=== PATIENT | male | born 1955 | race Caucasian/White ===

== ENCOUNTER 2019-07-25 07:58 | Outpatient (CLI) | payer MEDICARE, SELFPAY ==
--- NOTE | 2019-08-12 19:43 | SLEEP_ITS ---
Split Night Study DATE OF STUDY: 07/25/2019 ORDERING PHYSICIAN: Ashlie Goel MD. REASON FOR THE STUDY: Sleep apnea, unspecified. HISTORY: This patient is a 63-year-old male, 73 inches tall, weighing 305 pounds with a body mass index of 40.2. He has a history of frequently awakening at nighttime with coughing. He does have COPD. He does not indicate whether or not he snores. He frequently has trouble sleeping with a cold. He does not gasp for breath at night. He rarely has breathing problems observed by others at night. He does not fall asleep during the day, does not fall asleep involuntarily or while driving. He does not have daytime difficulties due to excessive sleepiness, is retired. He rarely has loss of muscle tone with strong emotion. He does not feel paralyzed on waking or falling asleep. He does not have vivid dreamlike scenes upon awakening or falling asleep. He is never afraid to go to sleep. He does not have nightmares. He occasionally remembers his dreams. He occasionally has racing thoughts, feelings of sadness, depression, anxiety, and muscular tension. He frequently notices parts of his body jerking, he frequently kicks at night and frequently has crawly, achy feelings in his legs. He frequently has leg pain at night. He denies morning jaw pain and denies grinding his teeth during sleep. He constantly is bothered by pain during the day as well as at night, wakes up feeling stiff in the morning with sore achy muscles and pain in the neck and spine joint. He has depression, headaches, financial problems, stomach problems and fatigue. He goes to bed between 9 and 10 p.m., taking 1-4 hours to fall asleep, sometimes waking 3 or more times during the night. Wake up time is variable. His sleep schedule is the same on the weekends. He does take naps. A short nap may be refreshing. He is usually drowsy in the morning for 3 hours or longer. He feels better in the afternoon and evening compared to the morning. MEDICAL DIAGNOSES: Arthritis with multiple surgeries including left hip, left knee, back surgery, pins and rods in his neck. He has had left shoulder surgery twice. He has diabetes mellitus, hypercholesterolemia, anxiety, depression, hypertension, myocardial infarction, history of a stroke, COPD, and acid reflux. MEDICATIONS: 1. Atorvastatin 40 mg a day. 2. Fluoxetine 40 mg a day. 3. Gabapentin 600 mg 1 tablet 3 times a day. 4. Levemir insulin as instructed. 5. Lisinopril 5 mg a day. 6. NovoLog insulin as instructed. 7. Oxycodone/acetaminophen 10/325 one t.i.d. p.r.n. pain. 8. Tizanidine 4 mg 1 t.i.d. as needed. 9. Trazodone 50 mg at bedtime. 10. Vascepa 1 g 4 times a day. 11. Warfarin 10 mg 1 daily. HABITS: Tobacco 1-1/2 packs per day. Caffeine, 4 cans of Pepsi per day. No alcohol. DESCRIPTION OF THE STUDY: On the Monroe Sleepiness Scale his score is 2. This was conducted as a split-night nocturnal polysomnogram in the lab using the [employer] multiple channel system including EOG, EEG, submental EMG, EKG, nasal and oral airflow using thermistors and nasal pressure sensors, chest, and abdominal belts, body position data and pulse oximetry. This study was scored using CMS guidelines. Duration was 262.4 minutes. Sleep time 168.5 minutes. Sleep efficiency was 64.2%. Sleep latency 19 minute. REM latency 195.5 minutes. He woke 6 times and spent 74.9 minutes awake after sleep onset. Sleep architecture showed 3% stage 1 sleep, 54.9% stage 2 sleep, 26.7% stage 3 sleep and 15.4% stage REM. There was no supine sleep during this portion. The apnea-hypopnea index was 10.7, all obstructive events. He had 1 obstructive apnea and 19 obstructive hypopneas in non-supine REM for an index of 46.2. He had 10 obstructive hypopne
== END 2019-07-25 07:59 | disposition home or self-care (01) ==
LOC: ANHCSM 07:59
PROVIDERS: PCP Family Medicine; Visit Provider Family Medicine
DX: G47.30 Sleep apnea, unspecified (principal)
CPT/HCPCS: 95811

== ENCOUNTER 2019-08-29 09:14 | Outpatient (CLI) | payer MEDICARE, SELFPAY | END 2019-08-29 09:15 | disposition home or self-care (01) | LOC: ANHAUDIO 09:16 | PROVIDERS: PCP Family Medicine; Visit Provider Family Medicine | DX: H91.93 Unspecified hearing loss, bilateral (principal) | CPT/HCPCS: 92557; 92567 ==

== ENCOUNTER 2019-09-12 18:56 | Emergency (ER) | payer MEDICARE, SELFPAY ==
--- NOTE | ~2019-09-12 | CT_ITS ---
EXAMINATION: CT abdomen pelvis w con EXAM DATE: 09/12/2019 20:28 INDICATION: Generalized abdominal pain. TECHNIQUE: Spiral CT of the abdomen and pelvis was performed following intravenous injection of 100 m L Omnipaque 350. Axial, coronal and sagittal images were reviewed. The dose-length product (DLP) fo r this examination was 1592.56 mGy-cm. The exposure was tailored according to patient size (auto mA exposure control), and iterative reconstruction (ASIR) was used as additional dose reduction techniqu e. Comparison is made to prior examination from 10/25/2018. FINDINGS: The liver, spleen, adrenal glands and pancreas are unremarkable. There are cholecystectomy clips. Portal and splenic veins are patent. Kidneys enhance symmetrically. There is no hydronephr osis. The prostate is unremarkable. Small left inguinal fat-containing hernia. The bladder is unre markable. There is no retroperitoneal or pelvic lymphadenopathy. There is mild scattered arteriosc lerotic disease. The appendix is normal. The stomach and small bowel are unremarkable. There is expected amount of c olonic stool. No free intraperitoneal gas. The heart is normal in size. There are no pericardial or pleural effusions. There is a left lower lobe nodule measuring 1.2 cm, likely granuloma. Some ve ry faint basilar mosaic attenuation as previously seen, could be mild air trapping given that this is likely chronic. With mild lobulations but no spiculation. This is unchanged compared to study one ye ar ago Lumbar fusion hardware and left hip replacement. There are no osteoblastic or osteolytic lesi ons identified. IMPRESSION: 1. No acute intra-abdominal findings. 2. Stable left lower lobe nodule probably granuloma. 3. Small left inguinal fat-containing hernia. 4. Basilar mosaic attenuation likely chronic air trapping. Reviewed, dictated and finalized at location A.
--- NOTE | ~2019-09-12 | XR_ITS ---
EXAMINATION: XR chest 1V portable EXAM DATE: 09/12/2019 21:37 INDICATION: Shortness of breath. TECHNIQUE: Portable AP frontal chest x-ray was obtained. Comparison is made to prior examination from 10/25/2018. FINDINGS: The cardiomediastinal silhouette is prominent but magnified on this AP technique. No conflu ent consolidation, pneumothorax or pleural effusion suspected. The bones and soft tissues are unrema rkable. IMPRESSION: No acute cardiopulmonary findings. Follow-up can be obtained if symptoms persist. Reviewed, dictated and finalized at location A. IMPRESSION: No acute cardiopulmonary findings. Follow-up can be obtained if sy mptoms persist.
[2019-09-12 19:02] VITALS: BP 146/87; PULSE 73; RESP 17; TEMP 37.1; O2SAT 93
[2019-09-12 19:03] LABS: Glucose Point of Care 361 (65-105)
--- NOTE | 2019-09-12 19:22 | ED.ABDPAIN ---
HPI - Abdominal Pain General Chief Complaint: Abdominal Pain Stated Complaint: several problems Time Seen by Provider: 09/12/19 19:11 History of Present Illness HPI narrative: Patient presents from home with abdominal pain for 8 years. Has intermittent spasms that started on his lower left go up to the upper left across to the upper right and down to the lower right. He says he aguilar over with this pain. He said is currently 10 out of 10, but worse if he bends over. He said years ago he had this pain and had a laparoscopy, and the surgeon remove scar tissue. He was told at that time that it would recur frequently. He takes chronic narcotics for chronic pain, and says that morphine does not work for him, and neither does fentanyl. MD elicited complaint: abdominal pain Pertinent past history: other (Adhesions) Onset (ago): year(s) Pain Consistency: intermittent Location: LUQ, RUQ, RLQ and LLQ Severity: severe Pain scale (0-10): 10 Quality: cramping Migration to: LUQ, RUQ, LLQ and RLQ Exacerbating factors: movement Relieving factors: nothing Context: confirms history of similar episodes Treatments prior to arrival: prescription analgesics Related Data Home Medications Medication Instructions Recorded Confirmed Levemir FlexTouch U-100 Insuln 15 unit SUBCUT DAILY 03/23/19 03/26/19 Vascepa 1 g PO QID 03/23/19 03/26/19 atorvastatin 40 mg PO DAILY 03/23/19 03/26/19 dicyclomine 20 mg PO TID 03/23/19 03/26/19 fluoxetine 40 mg PO DAILY 03/23/19 03/26/19 gabapentin 600 mg PO TID 03/23/19 03/26/19 lisinopril 5 mg PO DAILY 03/23/19 03/26/19 oxycodone-acetaminophen 1 tablet PO TID 03/23/19 03/26/19 tizanidine 4 mg PO TID 03/23/19 03/26/19 trazodone 50 mg PO DAILY 03/23/19 03/26/19 warfarin 10 mg PO DAILY 03/23/19 03/26/19 atorvastatin 40 mg tablet 40 mg PO DAILY 04/21/19 dicyclomine 20 mg tablet 20 mg PO TID 04/21/19 fluoxetine 40 mg capsule 40 mg PO DAILY 04/21/19 gabapentin 600 mg tablet 600 mg PO TID 04/21/19 icosapent ethyl 1 gram capsule 2 gm PO BID 04/21/19 insulin detemir U-100 100 unit/mL 100 unit SUB-Q ONCE 04/21/19 subcutaneous solution lisinopril 5 mg tablet 5 mg PO DAILY 04/21/19 oxycodone 5 mg capsule 5 mg PO Q8H PRN 04/21/19 tizanidine 4 mg capsule 4 mg PO TID PRN 04/21/19 trazodone 50 mg tablet 50 mg PO BID 04/21/19 warfarin 1 mg tablet 1 mg PO QMWF 04/21/19 Allergies Allergy/AdvReac Type Severity Reaction Status Date / Time furosemide Allergy Unknown Unknown Verified 07/01/19 08:37 Review of Systems Review of Systems: Narrative: CONSTITUTIONAL: Denies fever, chills, or sweats. EYES: Denies visual changes, redness, or discharge. ENT: Denies rhinorrhea, congestion, sore throat, or otalgia. CARDIOVASCULAR: Denies chest pain, palpitations, or edema. RESPIRATORY: Denies cough or dyspnea. GASTROINTESTINAL: Denies nausea, vomiting, or diarrhea. GENITOURINARY: Denies dysuria or hematuria. SKIN: Denies rash or itching. MUSCULOSKELETAL: Denies back pain, joint pain, or myalgia. NEUROLOGIC: Denies headache, numbness, or weakness. PSYCHIATRIC: Denies anxiety or depression. [facility] Past Medical History Medical History Abdominal pain, chronic, left lower quadrant Chronic generalized abdominal pain due to adhesions Chronic anticoagulation Chronic anticoagulation Chronic lower back pain With history of lumbar spines are COPD (chronic obstructive pulmonary disease) Coronary artery disease Cardiac catheterization 25 years ago without need for intervention per patient report CVA (cerebral vascular accident) 1998 with residual left-sided weakness and impulse control issues Depression Diabetes mellitus Last hemoglobin A1c 6.23 October 2018 Diverticulitis With patient reported history of suspected prior diverticulitis with perforation resulting in scar formation and subsequent adhesion lysis at the time cholecystectomy Emphysema with both acute and chronic bronchitis
[2019-09-12 19:33] LABS: Basophils Absolute Auto 0.1 K/mm3 (0.0-0.1); Basophils Percent Auto 0.7 % (0.2-1.2); Eosinophils Absolute Auto 0.3 K/mm3 (0-0.3); Eosinophils Percent Auto 3.1 % (0-4.4); Hematocrit 39.9 % (42.0-52.0); Hemoglobin 13.7 g/dL (14.0-18.0); Immature Granulocyte Absolute 0.03 K/mm3 (0.00-0.031); Immature Granulocyte Percent A 0.4 % (0-0.5); Lymphocytes Absolute Auto 2.47 K/mm3 (0.9-3.2); Lymphocytes Percent Auto 29.7 % (18.3-44.2); Mean Corpuscular HGB Conc 34.3 g/dl (32-36); Mean Corpuscular Hemoglobin 30.9 pg (26-34); Mean Corpuscular Volume 90.1 fl (80-100); Mean Platelet Volume 9.9 fl (7.4-10.4); Monocytes Absolute Auto 0.5 K/mm3 (0.1-0.6); Monocytes Percent Auto 6.4 % (2.6-8.5); Neutrophils Percent Auto 59.7 % (45.5-73.1); Platelet Count Result 246 k/mm3 (150-375); Red Blood Count 4.43 M/mm3 (4.6-6.20); Red Cell Distribution Width 12.5 % (11.5-14.5); White Blood Count 8.3 K/mm3 (4.5-10.0)
[2019-09-12 19:43] LABS: INR 2.3; Prothrombin Time 24.6 Seconds (11.1-14.7)
[2019-09-12 19:44] LABS: Ethanol < 10 mg/dL (<10)
[2019-09-12 19:49] LABS: Alanine Aminotransferase 27 U/L (4-50); Albumin Level 4.2 g/dL (3.5-5.1); Alkaline Phosphatase 152 U/L (38-126); Aspartate Amino Transferase 33 U/L (17-59); Bilirubin,Total 0.3 mg/dL (0.2-1.3); Blood Urea Nitrogen 25 mg/dL (9-20); Calcium 9.3 mg/dL (8.4-10.2); Carbon Dioxide 23 mmol/L (22-30); Chloride 95 mmol/L (98-107); Estimated Glomerular Filt Rate > 60; Glucose 549 mg/dL (75-110); Lipase 146 U/L (23-300); Potassium 4.7 mmol/L (3.4-5.0); Sodium 127 mmol/L (137-145)
[2019-09-12] MEDS: SODIUM CHLORIDE 0.9% IV 1,000 ML 999 ML IV CONT (19:59)
[2019-09-12 20:00] VITALS: BP 108/61; PULSE 72; RESP 21; O2SAT 90
[2019-09-12] MEDS: INSULIN HUMAN REGULAR (*BKC) 100 UNITS/ML 10 UNITS IV PUSH (20:03)
[2019-09-12 20:16] LABS: Hemoglobin A1C 10.3 % (<5.7)
[2019-09-12 20:22] LABS: Amphetamine Screen Urine Negative (Negative); Barbiturate Screen Urine Negative (Negative); Benzodiazepines Screen Urine Negative (Negative); Cannabinoid Screen Urine Negative (Negative); Cocaine Screen Urine Negative (Negative); Methadone Screen Urine Negative (Negative); Opiate Screen Urine Negative (Negative); Phencyclidine Screen Urine Negative (Negative)
[2019-09-12 20:52] VITALS: BP 104/85; PULSE 65; RESP 24; O2SAT 90
[2019-09-12 20:53] LABS: Glucose Point of Care 243 (65-105)
[2019-09-12 21:00] VITALS: BP 104/85; PULSE 62; RESP 19; O2SAT 91
[2019-09-12 21:16] LABS: Alveolar/Arterial O2 Gradient 73.8 mmHg; Base Excess ABG -0.8 mEq/l (+/-2.0); Device NASAL CANNULA; Fractional Inspired Oxygen 28 %; Modified Allen's Test Pass; Oxygen Content ABG 17.2 %vol (16.0-22.0); Oxygen Saturation ABG 93.8 % (95.0-100.0); Oxyhemoglobin 88.7 % THb (90.0-100.0); PCO2 ABG 45.6 mmHg (35.0-45.0); PO2 FiO2 Ratio Arterial Blood 2.57 %; Site Drawn RIGHT RADIAL; Total Hemoglobin 13.8 g/dL (12.0-18.0); pH ABG 7.357 (7.350-7.450)
[2019-09-12 21:58] LABS: Add Urine Microscopic? YES; Appearance Urine Clear (Clear); Bilirubin Urine Negative (Negative); Blood Urine Negative (Negative); Color Urine Straw (Yellow); Glucose Urine UA 3+ mg/dL (Negative); Ketones Urine Negative (Negative); Leukocyte Esterase Ur Negative LEU/UL (Negative); Nitrate Urine Negative (Negative); Protein Urine Negative (Negative); RBC Urine 0-2 /hpf (0-2); Specific Grav Ur 1.027 (1.001-1.035); Urobilinogen Urine Negative mg/dL (<2.0); WBC Urine 0-3 /hpf
[2019-09-12 22:00] VITALS: BP 113/74; PULSE 64; RESP 20; O2SAT 91
[2019-09-13 14:31] LABS: SARS-CoV-2 RNA PCR Negative
== END 2019-09-12 22:28 | disposition home or self-care (01) ==
PROVIDERS: Emergency Provider Emergency Medicine; PCP Family Medicine
DX: E66.2 Morbid (severe) obesity with alveolar hypoventilation (principal); R09.02 Hypoxemia; E11.65 Type 2 diabetes mellitus with hyperglycemia; Z79.4 Long term (current) use of insulin; R10.84 Generalized abdominal pain; Z20.828 Contact with and (suspected) exposure to other viral communicable diseases; I25.10 Atherosclerotic heart disease of native coronary artery without angina pectoris; I69.954 Hemiplegia and hemiparesis following unspecified cerebrovascular disease affecting left non-dominant side; J43.9 Emphysema, unspecified; Z86.718 Personal history of other venous thrombosis and embolism; I10 Essential (primary) hypertension; F32.9 Major depressive disorder, single episode, unspecified; Z96.642 Presence of left artificial hip joint; Z96.652 Presence of left artificial knee joint; F17.210 Nicotine dependence, cigarettes, uncomplicated
CPT/HCPCS: 36415; 36600; 71045; 74177; 80053; 80307; 81001; 82805; 83036; 83690; 85025; 85610; 87635; 87804; 96361; 96374; 96375; 99284; C9803; J1815; J3010; J7030; Q9967; U0003

== ENCOUNTER 2019-10-03 12:10 | Outpatient (RCR) | payer MEDICARE, SELFPAY ==
--- NOTE | 2019-10-03 13:48 | PTOPEVAL ---
PHYSICAL THERAPY EVALUATION AND PLAN OF CARE Thank you for referring Venkat Saul II to [facility]. I recommend Venkat participate in physical therapy 2x/week for 4 weeks followed by re-assessment for further skilled care requirements. Please review, sign, date and return this plan of care EDUARDO. I agree with and certify that the following plan of care is medically necessary. Referring Physician Date Attending Provider: Tiffanie Goel, MD Evaluation Outpatient Past Medical History Neurological History Hx Cerebrovascular Accident (CVA) Yes: 1998 Cardiovascular History Hx Cardiac Catheterization Yes Hx Chest Pain Yes Hx Congestive Heart Failure Yes Hx Deep Vein Thrombosis Yes: three in left leg Hx Hypercholesterolemia Yes Hx Hypertension Yes Hx Myocardial Infarction Yes: mild Respiratory History Hx Chronic Obstructive Pulmonary Disease Yes (COPD) Hx Emphysema Yes Gastrointestinal History Hx Diverticulitis Yes Hx Gall Bladder Disease Yes: removed Genitourinary History Hx Genitourinary Disorders No Significant History Musculoskeletal History Hx Joint Replacement Yes: x3 LTHA most recent 2017, L TKA 2014 Endocrine History Hx Diabetes Yes Integumentary History Hx Shingles Yes: near coccyx, 2 episodes Hx Other Skin Disorders Yes: current abscess on left buttocks Reproductive History Hx Reproductive Disorders No Significant History Psychosocial History Hx Depression Yes Pain History Has Past Pain Affected Your Daily Life Yes History of Long-Term Prescription Pain Yes Medication Use (Opiates) Other History Hx Other Medical Conditions Yes Hx Other Surgeries Yes: fx vertebrae with hardware, plate and screws placed; back of neck rods pins Evaluation Information Problem Diagnosis low back pain, left Onset 3 years Additional Evaluation Detail 1998: stroke affecting left limbs - states he worked for a year to learn to walk again and has not regained feeling in the left leg or arm since then Subjective Information Venkat is here today with Query Text:As Reported By Patient/ chronic low back pain that he Family is calling pinched sciatic nerve. He states he has been experiencing this pain since his last lumbar fusion 3 years ago. Reports he feels leg
--- NOTE | 2019-10-21 15:32 | PCPTNOTE ---
PHYSICAL THERAPY DISCHARGE NOTE Attending Provider: Tiffanie Goel, Patient:Venkat Saul II Date of :1955 Venkat participated in a physical therapy evaluation for left sided low back pain on 10/03/2019. After attempting 3x to call to schedule appointments, our office was told he will be moving to [place]; therefore he will be discharged at this time. Thank you for referring this patient to [facility]. Please review, sign, date and return this discharge summary EDUARDO. I have been updated about the patient's current status and I agree with discharge from the above service at this time. Referring Physician Date
== END 2019-10-21 15:43 | disposition home or self-care (01) ==
LOC: ANHPT 12:10
PROVIDERS: PCP Family Medicine; Visit Provider Family Medicine
DX: M54.5 Low back pain (principal)
CPT/HCPCS: 97163

== ENCOUNTER 2019-10-08 17:19 | Emergency (ER) | payer MEDICARE, SELFPAY ==
--- NOTE | ~2019-10-08 | XR_ITS ---
EXAMINATION: XR chest 1V portable EXAM DATE: 10/08/2019 18:50 INDICATION: Muscle spasms all over. Dizziness, history of COPD, CHF. TECHNIQUE: Portable AP frontal chest x-ray was obtained. Comparison is made to prior examination from 09/12/2019. FINDINGS: The lungs are clear. There are no pleural effusions. Cardiomediastinal silhouette is norm al. There is no pneumothorax suspected. Cervical fusion hardware. Moderate-sized mid and lower thor acic endplate osteophytes. IMPRESSION: No acute cardiopulmonary findings. Reviewed, dictated and finalized at location A.
--- NOTE | ~2019-10-08 | CT_ITS ---
EXAMINATION: CT brain wo con EXAM DATE: 10/08/2019 18:43 INDICATION: Dizziness. TECHNIQUE: Spiral CT of the head was performed without contrast. Axial, coronal and sagittal images were reviewed. The dose-length product (DLP) for this examination was 681.00 mGy-cm. The exposure w as tailored according to patient size, and iterative reconstruction (ASIR) was used as additional dos e reduction technique. Comparison is made to prior examination from 12/02/2018. FINDINGS: There is no acute intraparenchymal hemorrhage. No evidence of intraparenchymal brain mass lesion. No evidence of acute infarction. Please note that initial head CT has limited sensitivity f or small or acute infarctions. There is mild periventricular and subcortical hypodensity, nonspecifi c but probably related to small vessel ischemic disease. There is mild prominence of the sulci and ventricles related to cerebral atrophy. There is intracranial carotid arteriosclerosis. There are no extra-axial collections. There is no mass effect or midline shift. The orbits are unremarkable. Soft tissue is unremarkable. Mild bilateral ethmoid mucoperiosteal thickening IMPRESSION: 1. No acute intracranial findings. 2. Chronic age related findings. Reviewed, dictated and finalized at location A.
[2019-10-08 17:20] VITALS: BP 143/73; PULSE 78; RESP 18; TEMP 35.9; O2SAT 98
[2019-10-08 18:11] LABS: Basophils Absolute Auto 0.1 K/mm3 (0.0-0.1); Basophils Percent Auto 0.5 % (0.2-1.2); Eosinophils Absolute Auto 0.3 K/mm3 (0-0.3); Eosinophils Percent Auto 2.8 % (0-4.4); Hematocrit 39.5 % (42.0-52.0); Hemoglobin 13.5 g/dL (14.0-18.0); Immature Granulocyte Absolute 0.03 K/mm3 (0.00-0.031); Immature Granulocyte Percent A 0.3 % (0-0.5); Lymphocytes Percent Auto 28.5 % (18.3-44.2); Mean Corpuscular HGB Conc 34.2 g/dl (32-36); Mean Corpuscular Hemoglobin 31.3 pg (26-34); Mean Corpuscular Volume 91.4 fl (80-100); Mean Platelet Volume 9.3 fl (7.4-10.4); Monocytes Absolute Auto 0.6 K/mm3 (0.1-0.6); Monocytes Percent Auto 6.2 % (2.6-8.5); Neutrophils Absolute Auto 6.1 K/mm3 (1.3-6.7); Neutrophils Percent Auto 61.7 % (45.5-73.1); Platelet Count Result 267 k/mm3 (150-375); Red Blood Count 4.32 M/mm3 (4.6-6.20); Red Cell Distribution Width 12.6 % (11.5-14.5); White Blood Count 9.8 K/mm3 (4.5-10.0)
[2019-10-08 18:13] LABS: Blood Urea Nitrogen 24 mg/dL (9-20); Calcium 9.2 mg/dL (8.4-10.2); Carbon Dioxide 23 mmol/L (22-30); Chloride 104 mmol/L (98-107); Creatine Kinase 390 U/L (55-170); Estimated CRCL calculation 73 ml/min; Estimated Glomerular Filt Rate 51; Glucose 109 mg/dL (75-110); Magnesium 1.6 mg/dL (1.6-2.3); Potassium 4.4 mmol/L (3.4-5.0); Sodium 137 mmol/L (137-145)
--- NOTE | 2019-10-08 18:16 | ECG_ITS ---
Measurements Intervals [place] Rate: 61 P: 60 DE: 227 QRS: -6 QRSD: 92 T: 24 QT: 390 QTc: 394 Interpretive Statements SINUS RHYTHM WITH FIRST DEGREE AV BLOCK DELAYED PRECORDIAL R/S TRANSITION BASELINE ARTIFACT- I, II, III ABNORMAL ECG Electronically Signed On 10-09-2019 7:33:24 CDT by Carlos Rose D.O.
--- NOTE | 2019-10-08 18:22 | ED.GENADULT ---
HPI - General Adult General Chief complaint: Unspecified <Td Olivarez DO - Last Filed: 10/08/19 18:23> Stated complaint: muscle spasms <Td Olivarez DO - Last Filed: 10/08/19 18:23> Time Seen by Provider: 10/08/19 17:44 <Td Olivarez DO - Last Filed: 10/08/19 18:23> Source: RN notes reviewed <Td Olivarez DO - Last Filed: 10/08/19 18:23> History of Present Illness HPI narrative: Patient presents emergency department from home for dizziness. Patient states for the past 3 days he has been dizzy and felt that he has had unstable gait at times. Patient states it is not always constant but is intermittent. He states that he also has a problem with involuntary movement of his bilateral arms. He states at times he will be smoking and is like his arm up through the cigarette out of his mouth. He denies any unilateral numbness or weakness he states he does have a previous history of CVA with left-sided weakness chronically but no new complaints denies any difficulty speaking denies any fevers or chills vision changes chest pain shortness of breath abdominal pain nausea vomiting or any other symptoms <Td Olivarez DO - Last Filed: 10/08/19 18:23> Related Data Home medications: Home Medications Medication Instructions Recorded Confirmed Levemir FlexTouch U-100 Insuln 15 unit SUBCUT DAILY 03/23/19 03/26/19 Vascepa 1 g PO QID 03/23/19 03/26/19 atorvastatin 40 mg PO DAILY 03/23/19 03/26/19 dicyclomine 20 mg PO TID 03/23/19 03/26/19 fluoxetine 40 mg PO DAILY 03/23/19 03/26/19 gabapentin 600 mg PO TID 03/23/19 03/26/19 lisinopril 5 mg PO DAILY 03/23/19 03/26/19 oxycodone-acetaminophen 1 tablet PO TID 03/23/19 03/26/19 tizanidine 4 mg PO TID 03/23/19 03/26/19 trazodone 50 mg PO DAILY 03/23/19 03/26/19 warfarin 10 mg PO DAILY 03/23/19 03/26/19 atorvastatin 40 mg tablet 40 mg PO DAILY 04/21/19 dicyclomine 20 mg tablet 20 mg PO TID 04/21/19 fluoxetine 40 mg capsule 40 mg PO DAILY 04/21/19 gabapentin 600 mg tablet 600 mg PO TID 04/21/19 icosapent ethyl 1 gram capsule 2 gm PO BID 04/21/19 insulin detemir U-100 100 unit/mL 100 unit SUB-Q ONCE 04/21/19 subcutaneous solution lisinopril 5 mg tablet 5 mg PO DAILY 04/21/19 oxycodone 5 mg capsule 5 mg PO Q8H PRN 04/21/19 tizanidine 4 mg capsule 4 mg PO TID PRN 04/21/19 trazodone 50 mg tablet 50 mg PO BID 04/21/19 warfarin 1 mg tablet 1 mg PO QMWF 04/21/19 baclofen 20 mg PO TID 10/08/19 <Td Olivarez DO - Last Filed: 10/08/19 18:23> Allergies/adverse reactions: Allergies Allergy/AdvReac Type Severity Reaction Status Date / Time furosemide Allergy Unknown Unknown Verified 10/08/19 17:26 <Td Olivarez DO - Last Filed: 10/08/19 18:23> Review of Systems Review of Systems: Narrative: Gen.: Denies fevers or chills Eyes: Denies eye pain or visual change ENT: Denies congestion Respiratory: Denies shortness of breath or cough CV: Denies chest pain or palpitations GI: Denies abdominal pain nausea, emesis or diarrhea denies burning, urgency, frequency or hematuria Musculoskeletal: Denies back pain or muscle pain Neuro: See HPI Skin: Denies rash Except as documented, all other systems reviewed and negative <Td Olivarez DO - Last Filed: 10/08/19 18:23> [facility] Past Medical History Medical History: Medical History Abdominal pain, chronic, left lower quadrant Chronic generalized abdominal pain due to adhesions Chronic anticoagulation Chronic anticoagulation Chronic lower back pain With history of lumbar spines are COPD (chronic obstructive pulmonary disease) Coronary artery disease Cardiac catheterization 25 years ago without need for intervention per patient report CVA (cerebral vascular accident) 1998 with residual left-sided weakness and impulse control issues Depression Diabetes mellitus Last hemoglobin A1c 6.23 October 2018 Di
[2019-10-08 19:02] LABS: Troponin I < 0.012 ng/mL (0.000-0.034)
[2019-10-08 19:02] LABS: Glucose Point of Care 97 (65-105)
[2019-10-08 19:27] LABS: INR 2.6; Prothrombin Time 27.6 Seconds (11.1-14.7)
[2019-10-08 19:28] LABS: Partial Thromboplastin Time 39.5 SECONDS (22.3-36.8)
[2019-10-08 19:29] LABS: Add Urine Microscopic? YES; Appearance Urine Clear (Clear); Bacteria Urine Trace /hpf; Bilirubin Urine 1+ (Negative); Blood Urine Negative (Negative); Color Urine Amber (Yellow); Glucose Urine UA 2+ mg/dL (Negative); Ketones Urine Trace mg/dL (Negative); Leukocyte Esterase Ur Negative LEU/UL (Negative); Mucus Urine Rare /lpf; Nitrate Urine Negative (Negative); Protein Urine 1+ mg/dL (Negative); RBC Urine 0-2 /hpf (0-2); Specific Grav Ur 1.028 (1.001-1.035); Squamous Epithelial Cell Urine Rare /hpf (Few); WBC Urine 0-3 /hpf
[2019-10-08 19:31] VITALS: BP 101/65; BP 104/67; BP 143/73; PULSE 63; PULSE 70; PULSE 78
[2019-10-08 21:05] LABS: Glucose Point of Care 127 (65-105)
[2019-10-08 21:50] VITALS: BP 110/80; PULSE 77; RESP 20; TEMP 36.8; O2SAT 99
== END 2019-10-08 21:51 | disposition home or self-care (01) ==
PROVIDERS: Emergency Medicine; Emergency Provider Emergency Medicine; PCP Family Medicine
DX: E86.0 Dehydration (principal); R25.2 Cramp and spasm; Z79.01 Long term (current) use of anticoagulants; Z79.4 Long term (current) use of insulin; I25.10 Atherosclerotic heart disease of native coronary artery without angina pectoris; I69.954 Hemiplegia and hemiparesis following unspecified cerebrovascular disease affecting left non-dominant side; E11.9 Type 2 diabetes mellitus without complications; J43.9 Emphysema, unspecified; Z86.718 Personal history of other venous thrombosis and embolism; G47.33 Obstructive sleep apnea (adult) (pediatric); I10 Essential (primary) hypertension; F17.210 Nicotine dependence, cigarettes, uncomplicated; I44.0 Atrioventricular block, first degree; R94.31 Abnormal electrocardiogram [ECG] [EKG]
CPT/HCPCS: 36415; 70450; 71045; 80048; 81001; 82550; 82948; 83735; 84484; 85025; 85610; 85730; 93005; 99284

== ENCOUNTER 2019-10-22 13:09 | Inpatient (IN) | payer MEDICARE, SELFPAY ==
[2019-10-22] VITALS (11 sets, daily range): BP systolic 102–139; BP diastolic 38–85; PULSE 52–75; RESP 18–22; TEMP 36.1–37.2; O2SAT 88–95; BMI 39.8; BMI 39.6
--- NOTE | ~2019-10-22 | XR_ITS ---
EXAMINATION: XR chest 2V EXAM DATE: 10/22/2019 15:22 INDICATION: Shortness of breath, cough. Chest pressure. TECHNIQUE: Frontal and lateral projections of the chest obtained and reviewed. Comparison is made to prior examination from 10/08/2019. FINDINGS: The lungs are clear. There are no pleural effusions. The cardiomediastinal silhouette is within normal limits. There is no pneumothorax suspected. Cervical fusion hardware. Patient has di ffuse idiopathic skeletal hyperostosis (DISH). IMPRESSION: No acute cardiopulmonary findings. Reviewed, dictated and finalized at location A.
[2019-10-22 13:42] LABS: Alveolar/Arterial O2 Gradient 86.4 mmHg; Base Excess ABG -2.5 mEq/l (+/-2.0); Carboxyhemoglobin 4.2 % THb (0-2.0); Fractional Inspired Oxygen 28 %; HCO3 ABG 22.9 mEq/l (22.0-26.0); Methemoglobin ABG 0.2 %THb (0-1.5); Oxygen Content ABG 16.6 %vol (16.0-22.0); Oxygen Saturation ABG 91.6 % (95.0-100.0); PCO2 ABG 41.7 mmHg (35.0-45.0); PO2 FiO2 Ratio Arterial Blood 2.29 %; Reduced Hemoglobin 8.6 %THb (0-5.0); Total Hemoglobin 13.6 g/dL (12.0-18.0); pH ABG 7.357 (7.350-7.450)
[2019-10-22 13:44] LABS: Modified Allen's Test Pass; Site Drawn RIGHT RADIAL
[2019-10-22 13:45] LABS: Basophils Percent Auto 0.4 % (0.2-1.2); Eosinophils Absolute Auto 0.2 K/mm3 (0-0.3); Eosinophils Percent Auto 1.6 % (0-4.4); Hematocrit 36.2 % (42.0-52.0); Hemoglobin 13.1 g/dL (14.0-18.0); Immature Granulocyte Absolute 0.04 K/mm3 (0.00-0.031); Immature Granulocyte Percent A 0.4 % (0-0.5); Lymphocytes Absolute Auto 1.88 K/mm3 (0.9-3.2); Lymphocytes Percent Auto 19.8 % (18.3-44.2); Mean Corpuscular HGB Conc 36.2 g/dl (32-36); Mean Corpuscular Hemoglobin 31.9 pg (26-34); Mean Corpuscular Volume 88.1 fl (80-100); Mean Platelet Volume 10.5 fl (7.4-10.4); Monocytes Absolute Auto 0.7 K/mm3 (0.1-0.6); Monocytes Percent Auto 6.8 % (2.6-8.5); Neutrophils Absolute Auto 6.7 K/mm3 (1.3-6.7); Platelet Count Result 241 k/mm3 (150-375); Red Blood Count 4.11 M/mm3 (4.6-6.20); Red Cell Distribution Width 12.4 % (11.5-14.5); White Blood Count 9.5 K/mm3 (4.5-10.0)
[2019-10-22 13:45] LABS: Device NASAL CANNULA
[2019-10-22 13:53] LABS: Glucose Point of Care > 500 (65-105)
[2019-10-22 13:53] LABS: Glucose Point of Care > 500 (65-105)
[2019-10-22 14:01] LABS: Beta-Hydroxybutyrate/Acetoacetate 0.54 mmol/L (0.02-0.27)
[2019-10-22 14:08] LABS: Alanine Aminotransferase 26 U/L (4-50); Albumin Level 4.2 g/dL (3.5-5.1); Alkaline Phosphatase 208 U/L (38-126); Aspartate Amino Transferase 34 U/L (17-59); Bilirubin,Total 0.8 mg/dL (0.2-1.3); Blood Urea Nitrogen 28 mg/dL (9-20); Calcium 8.8 mg/dL (8.4-10.2); Carbon Dioxide 23 mmol/L (22-30); Chloride 85 mmol/L (98-107); Estimated CRCL calculation 74 ml/min; Estimated Glomerular Filt Rate 56; Glucose 815 mg/dL (75-110); Magnesium 1.6 mg/dL (1.6-2.3); Phosphorus 3.9 mg/dL (2.5-4.5); Potassium 4.8 mmol/L (3.4-5.0); Sodium 119 mmol/L (137-145)
[2019-10-22] MEDS: SODIUM CHLORIDE 0.9% IV 1,000 ML 999 ML IV CONT ×2 (14:14→14:53)
[2019-10-22] MEDS: INSULIN HUMAN REGULAR (*BKC) 100 UNITS/ML 10 UNITS IV PUSH ×2 (14:17→16:14)
[2019-10-22 14:27] LABS: Add Urine Microscopic? YES; Appearance Urine Clear (Clear); Bilirubin Urine Negative (Negative); Blood Urine 1+ (Negative); Color Urine Colorless (Yellow); Glucose Urine UA 3+ mg/dL (Negative); Ketones Urine Negative (Negative); Leukocyte Esterase Ur Negative LEU/UL (Negative); Nitrate Urine Negative (Negative); Protein Urine Negative (Negative); RBC Urine 0-2 /hpf (0-2); Specific Grav Ur 1.026 (1.001-1.035); Urobilinogen Urine Negative mg/dL (<2.0); WBC Urine 0-3 /hpf
--- NOTE | 2019-10-22 14:52 | ED.RECABL ---
HPI - Recheck/Abnormal Lab/Rx General Chief Complaint: Recheck/Abnormal Lab/Rx Stated Complaint: high blood sugar Time Seen by Provider: 10/22/19 13:24 History of Present Illness HPI narrative: Patient is a 63-year-old male who presents the ER with high blood sugars. Reports his blood sugars start running high on his glucometer 6 days ago but then occasionally would be normal so he did not know how to treat himself so he stopped taking his insulin for the last 4 days. Since then his glucometer as well as his family's glucometer result report his insulin is being greater than 600. Typically he takes sliding scale Humalog of 10 to 40 units and he usually takes Lantus at night. Patient reports some mild abdominal cramps which is been occurring for years. He has no fevers or chills or sweats. No chest pain or chest pressure. Reports he has been much more thirsty than typical and has been drinking 5 gallons of water a day and peeing regularly. Related Data Home Medications Medication Instructions Recorded Confirmed Levemir FlexTouch U-100 Insuln 15 unit SUBCUT HS 03/23/19 10/22/19 Vascepa 1 g PO QID 03/23/19 10/22/19 atorvastatin 40 mg PO HS 03/23/19 10/22/19 dicyclomine 20 mg PO TID 03/23/19 10/22/19 fluoxetine 40 mg PO DAILY 03/23/19 10/22/19 gabapentin 600 mg PO TID 03/23/19 10/22/19 lisinopril 5 mg PO DAILY 03/23/19 10/22/19 oxycodone-acetaminophen 1 tablet PO TID 03/23/19 10/22/19 trazodone 50 mg PO HS 03/23/19 10/22/19 warfarin 10 mg PO DAILY 03/23/19 10/22/19 baclofen 20 mg TID 10/22/19 10/22/19 insulin aspart U-100 [Novolog See Rx Instructions .ROUTE .COMPLEX 10/22/19 10/22/19 Flexpen U-100 Insulin] Allergies Allergy/AdvReac Type Severity Reaction Status Date / Time furosemide Allergy Unknown Unknown Verified 10/22/19 14:20 Review of Systems Review of Systems: All systems reviewed & are unremarkable except as noted in HPI and below Constitutional: Constitutional: Denies chills and Denies fever(s) ENT: Denies nasal congestion and Denies sore throat Cardiovascular: Cardiovascular: Denies chest pain, Denies rapid heart rate and Denies radiating jaw, neck or arm pain Respiratory: Respiratory: Denies cough, Denies dyspnea and Denies wheezing Gastrointestinal: Gastrointestinal: Reports abdominal pain, Denies nausea and Denies vomiting Musculoskeletal: Musculoskeletal: Reports muscle cramps Endocrine: Endocrine: Reports polydipsia and Reports polyuria PMFSH Social History Social History Social History: The patient reports that he has smoked 1.5 packs of cigarettes per day since he was 19. He denies illicit substance use. He used to drink alcohol but has not done so in years. He has been on disability since he had a stroke in 1998. He was living in [place] with his until she 3 years ago. Since that time he has been traveling with his small dog. He initially moved to [place] and lived with 1 of his sisters. Since June or so he has been in our area staying with another sister. He currently lives in the house with his sister [id number] and nephew as well as what sounds like a couple of other people. He ambulates without assistance. 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 Smoking packs per day: 1.25 Smoking cigarettes per day: 25.0 Years smoked: 44 Smoking pack-years: 55.00 Smoking status: Current every day smoker Tobacco type: cigarettes Second hand tobacco smoke exposure: Yes Alcohol intake: former Substance use: never Substance use type: does not use Last use: quit drinking alcohol 35 years ago Gender identity (if verbalized by the patient): Male Spiritual care concerns: No Agree to blood products: Yes Exam Narrative: Exam Narrative: GENERAL: Chronically ill-appearing, well-nourished, and appears uncomfortable. H
--- NOTE | 2019-10-22 15:20 | PC.NURSE ---
Patient to xray at this time.
[2019-10-22 15:35] LABS: Glucose Point of Care 483 (65-105)
[2019-10-22 16:15] LABS: Glucose Point of Care 446 (65-105)
--- NOTE | 2019-10-22 16:58 | PC.NURSE ---
This patient, Venkat Saul II, was admitted to IMU Room 201-01 on 10/22/2019 at 1655. Patient/family oriented to hospital policies and general routines including ID bracelet, bed and alarms, visiting hours, pain management, procedures, bathroom and other care routines, personal items, smoking policy, room service/diet, and visiting hours. Valuables list has been completed. Information on how to activate the Rapid Response Team has been discussed. Patient/Family are encouraged to report perceived risks to care and to ask questions if they do not understand what they are told or what they should do.
[2019-10-22 17:33] LABS: Glucose Point of Care 289 (65-105)
[2019-10-22] MEDS: MORPHINE SULFATE 4 MG/ML INJ IV PUSH (17:59)
--- NOTE | 2019-10-22 20:03 | PM.IMHP ---
H&P: HPI History of Present Illness Chief complaint: hyperglycemia,pseudohponatremia Narrative: Venkat Saul II is a 63 year old male who lives with his sister. The patient is a diabetic patient who typically states that his blood sugars are in the 100 however I have seen in A1c that was over 11 and 1 of his past records. It was also noted in 1 of his doctor visits that the patient's blood sugars range anywhere from 200-600 range. The patient typically feels ill and is exhausted. The patient stated that he was pack to moved to [place] today but had checked his blood sugars and his blood sugars were reading as high and then back to normal. The patient did not know how to treat himself so that he stopped taking his insulin for last 4 days. He used his glucometer and also another family members glucometer to double check it and his blood sugar was greater than 600. He has been having abdominal cramps on and off for years but today it gets pretty severe. He has been drinking more water than normal. He states that he drinks 4-5 gal a day. He has polydipsia polyphasia. The patient typically uses a sliding scale Humalog 10-40 units in that he also takes Lantus at night. Patient's anion gap was noted to be 11 and his blood glucose was 815. The next 2 blood sugars were greater than 500 that it came down to 483 and then 446 and 289. He was given IV boluses and he was also given IV push insulin any was given Percocet for his chronic back pain ABGs were performed and patient was not acidotic. I discussed placing the patient in the intensive care unit with the ER provider and stated that the patient is not in DKA a felt that could be managed in IMU was sliding scale insulin. Date of service 10/22/2019. Review of Systems Review of Systems: All systems reviewed & are unremarkable except as noted in HPI and below Constitutional: Constitutional: Reports as per HPI and Reports no additional constitutional complaints Eyes: Eyes: Reports as per HPI and Reports no additional eye complaints ENT: Reports system reviewed and no additional complaints, except as documented and Reports Normal hearing present Cardiovascular: Cardiovascular: Reports no additional cardiovascular complaints Respiratory: Respiratory: Reports no additional respiratory complaints and Reports no additional respiratory complaints Gastrointestinal: Gastrointestinal: Reports as per HPI and Reports no additional gastrointestinal complaints Musculoskeletal: Musculoskeletal: Reports no additional musculoskeletal complaints Integumentary/Breasts: Skin/Breast: Reports system reviewed and no additional complaints, except as docu and Reports as per HPI Neurologic: Reports system reviewed and no additional complaints, except as documented, Reports as per HPI and Reports Normal hearing present Psychiatric: Psychiatric: Reports no additional psychiatric complaints and Reports as per HPI Endocrine: Endocrine: Reports no additional endocrine complaints Hematologic/Lymphatic: Hematologic/Lymphatic: Reports no additional hematologic/lymphatic complaints Allergic/Immunologic: Allergic/Immunologic: Reports no additional allergic/immunologic complaints [facility] Past Medical History Medical History (Updated 10/22/19 @ 20:33 by Karuna Dutta NP) Abdominal pain, chronic, left lower quadrant Chronic generalized abdominal pain due to adhesions Chronic anticoagulation Chronic anticoagulation Chronic lower back pain With history of lumbar spines are COPD (chronic obstructive pulmonary disease) Coronary artery disease Cardiac catheterization 25 years ago without need for intervention per patient report CVA (cerebral vascular accident) 1998 with residual left-sided weakness and impulse control issues Depression Diabetes mellitus Last hemoglobin A1c 6.23 October 2018 Diverticulitis With patient reported history of suspected prior diverticulitis with perforation resulting in scar formation and subsequent
[2019-10-22 20:33] LABS: Hemoglobin A1C 13.6 % (<5.7)
[2019-10-22 20:52] LABS: Glucose Point of Care 473 (65-105)
[2019-10-22] MEDS: OMEGA 3 POLYUNSAT FATTY ACIDS 1 GM CAP PO (21:12)
[2019-10-22] MEDS: INSULIN DETEMIR 100 UNITS/ML 15 UNITS SUB-Q (21:12)
[2019-10-22] MEDS: TRAZODONE HCL 50 MG TABLET PO (21:12)
[2019-10-22] MEDS: ATORVASTATIN 40 MG TABLET PO (21:12)
[2019-10-22 21:29] LABS: INR 1.6; Prothrombin Time 18.2 Seconds (11.1-14.7)
[2019-10-22] MEDS: INSULIN ASPART (*BKC) 100 UNITS/ML 12 UNITS SUB-Q (21:49)
--- NOTE | 2019-10-22 23:03 | PC.NURSE ---
Patient refuses to wear SCDs despite teaching regarding DVT prophylaxis.
[2019-10-23] VITALS (11 sets, daily range): BP systolic 98–113; BP diastolic 49–71; PULSE 53–95; RESP 16–18; TEMP 35.9–36.5; O2SAT 92–98
[2019-10-23 04:46] LABS: Basophils Absolute Auto 0.1 K/mm3 (0.0-0.1); Basophils Percent Auto 0.8 % (0.2-1.2); Eosinophils Absolute Auto 0.3 K/mm3 (0-0.3); Eosinophils Percent Auto 3.7 % (0-4.4); Hematocrit 35.7 % (42.0-52.0); Hemoglobin 12.7 g/dL (14.0-18.0); Immature Granulocyte Absolute 0.02 K/mm3 (0.00-0.031); Immature Granulocyte Percent A 0.3 % (0-0.5); Lymphocytes Absolute Auto 3.07 K/mm3 (0.9-3.2); Lymphocytes Percent Auto 39.6 % (18.3-44.2); Mean Corpuscular HGB Conc 35.6 g/dl (32-36); Mean Corpuscular Hemoglobin 31.3 pg (26-34); Mean Corpuscular Volume 87.9 fl (80-100); Mean Platelet Volume 9.9 fl (7.4-10.4); Monocytes Absolute Auto 0.6 K/mm3 (0.1-0.6); Monocytes Percent Auto 7.4 % (2.6-8.5); Neutrophils Absolute Auto 3.7 K/mm3 (1.3-6.7); Neutrophils Percent Auto 48.2 % (45.5-73.1); Platelet Count Result 204 k/mm3 (150-375); Red Blood Count 4.06 M/mm3 (4.6-6.20); Red Cell Distribution Width 12.2 % (11.5-14.5); White Blood Count 7.8 K/mm3 (4.5-10.0)
[2019-10-23 05:03] LABS: Alanine Aminotransferase 22 U/L (4-50); Albumin Level 3.6 g/dL (3.5-5.1); Alkaline Phosphatase 149 U/L (38-126); Aspartate Amino Transferase 30 U/L (17-59); Bilirubin,Total 0.4 mg/dL (0.2-1.3); Blood Urea Nitrogen 21 mg/dL (9-20); CRP 1.9 mg/dL (<1.0); Calcium 8.7 mg/dL (8.4-10.2); Carbon Dioxide 26 mmol/L (22-30); Chloride 99 mmol/L (98-107); Estimated CRCL calculation 121 ml/min; Estimated Glomerular Filt Rate > 60; Glucose 297 mg/dL (75-110); Magnesium 1.7 mg/dL (1.6-2.3); Sodium 131 mmol/L (137-145)
[2019-10-23 05:39] LABS: Thyroid Stimulating Hormone Reflex 0.407 uIU/mL (0.465-4.68)
[2019-10-23 06:57] LABS: Free T4 Free Thyroxine Reflex 1.12 ng/dL (0.78-2.19)
[2019-10-23 07:46] LABS: Total Triiodothyronine (T3) 0.93 NG/ML (0.97-1.69)
[2019-10-23 07:51] LABS: Glucose Point of Care 322 (65-105)
[2019-10-23] MEDS: GABAPENTIN 300 MG CAPSULE 600 MG PO ×3 (08:02→16:59)
[2019-10-23] MEDS: OMEGA 3 POLYUNSAT FATTY ACIDS 1 GM CAP PO ×3 (08:03→16:59)
[2019-10-23] MEDS: FLUOXETINE HCL 20 MG CAP 40 MG PO (08:03)
[2019-10-23] MEDS: DICYCLOMINE HCL 10 MG CAPSULE 20 MG PO ×3 (08:04→17:00)
[2019-10-23] MEDS: INSULIN ASPART (*BKC) 100 UNITS/ML SUB-Q ×3 (08:05→16:57)
--- NOTE | 2019-10-23 09:56 | PM.IMPN ---
Progress Note: A&P Assessment and Plan (1) Hyperglycemia due to type 2 diabetes mellitus: Qualifiers: Diabetes mellitus superintendent terminal insulin use: with superintendent terminal use Qualified Code(s): E11.65 - Type 2 diabetes mellitus with hyperglycemia; Z79.4 - detention (current) use of insulin Code(s): E11.65 - Type 2 diabetes mellitus with hyperglycemia Status: Chronic Assessment and Plan: Patient reports glucometer was not working well at home and therefore he did not trust readings. As result, he stops taking his insulin which he knows is wrong. Glucose some fairly elevated at 815 on presentation to ER. Patient received insulin and IV fluids in the ER with improvement. Did not require admission to ICU for insulin drip. Is in IMU. Glucose this morning much better with last reading of 322. Does not have good control at home with hemoglobin A1c of 13.6. Would benefit from speaking with dietitian and cosmetology educator but he is eager to leave today as he is already packed to moved to [place]. Patient tells me he normally takes scheduled NovoLog at home with his meals but also has sliding scale. Also on Levemir. Levemir has been continued here. Does have sliding scale NovoLog. Will add scheduled mealtime NovoLog. Will see how he does with glucose at lunch time. If readings are acceptable, anticipate discharge later today. (2) Acute hyponatremia: Code(s): E87.1 - Hypo-osmolality and hyponatremia Status: Acute Assessment and Plan: Result of hyperglycemia causing pseudo hyponatremia. Sodium better at 131 today. Can monitor as outpatient. (3) HTN (hypertension): Qualifiers: Hypertension type: essential hypertension Qualified Code(s): I10 - Essential (primary) hypertension Code(s): I10 - Essential (primary) hypertension Status: Chronic Assessment and Plan: Blood pressure reviewed on 10/23/2019 and stable. Continue to monitor on home lisinopril. Telemetry reviewed on 10/23/2019 with sinus rhythm. (4) Chronic anticoagulation: Code(s): Z79.01 - detention (current) use of anticoagulants Status: Chronic Assessment and Plan: On chronic anticoagulation for history of DVTs. INR 1.6 yesterday. Will recheck INR today. Continue hormone warfarin for now. (5) COPD (chronic obstructive pulmonary disease): Qualifiers: COPD type: unspecified COPD Qualified Code(s): J44.9 - Chronic obstructive pulmonary disease, unspecified Code(s): J44.9 - Chronic obstructive pulmonary disease, unspecified Status: Acute Assessment and Plan: No exacerbation. On room air. Will monitor. (6) Obstructive sleep apnea: Code(s): G47.33 - Obstructive sleep apnea (adult) (pediatric) Status: Acute Assessment and Plan: Declined CPAP machine. Presently on room air. Will monitor. (7) Tobacco abuse disorder: Code(s): Z72.0 - Tobacco use Status: Chronic Assessment and Plan: Cessation encouraged. Nicotine patch declined. (8) Hyperlipidemia: Qualifiers: Hyperlipidemia type: unspecified Qualified Code(s): E78.5 - Hyperlipidemia, unspecified Code(s): E78.5 - Hyperlipidemia, unspecified Status: Chronic Assessment and Plan: Continue atorvastatin and fish oil. (9) Depression: Qualifiers: Depression Type: unspecified Qualified Code(s): F32.9 - Major depressive disorder, single episode, unspecified Code(s): F32.9 - Major depressive disorder, single episode, unspecified Status: Chronic Assessment and Plan: Mood stable. Continue to monitor on fluoxetine and trazodone. (10) Chronic lower back pain: Qualifiers: Back pain laterality: unspecified Sciatica presence: unspecified whether sciatica present Qualified Code(s): M54.5 - Low back pain; G89.29 - Other chronic pain Code(s): M54.5 - Low back pain; G89.29 - Other chronic pain
[2019-10-23 11:57] LABS: INR 1.4; Prothrombin Time 17.2 Seconds (11.1-14.7)
[2019-10-23 12:10] LABS: Glucose Point of Care 390 (65-105)
[2019-10-23] MEDS: INSULIN ASPART (*BKC) 100 UNITS/ML 10 UNITS SUB-Q (12:16)
[2019-10-23] MEDS: lisinopriL 5 MG TABLET PO (12:18)
[2019-10-23 14:33] LABS: Glucose Point of Care 440 (65-105)
[2019-10-23 16:10] LABS: Glucose Point of Care 344 (65-105)
[2019-10-23] MEDS: INSULIN ASPART (*BKC) 100 UNITS/ML 30 UNITS SUB-Q (16:57)
--- NOTE | 2019-10-23 17:16 | PM.DS ---
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9 - Chronic obstructive pulmonary disease, unspecified Code(s): J44.9 - Chronic obstructive pulmonary disease, unspecified Status: Acute Assessment and Plan: No exacerbation. On room air. Will monitor. (6) Obstructive sleep apnea: Code(s): G47.33 - Obstructive sleep apnea (adult) (pediatric) Status: Acute Assessment and Plan: Declined CPAP machine. Presently on room air. Will monitor. (7) Tobacco abuse disorder: Code(s): Z72.0 - Tobacco use Status: Chronic Assessment and Plan: Cessation encouraged. Nicotine patch declined. (8) Hyperlipidemia: Qualifiers: Hyperlipidemia type: unspecified Qualified Code(s): E78.5 - Hyperlipidemia, unspecified Code(s): E78.5 - Hyperlipidemia, unspecified Status: Chronic Assessment and Plan: Continue atorvastatin and fish oil. (9) Depression: Qualifiers: Depression Type: unspecified Qualified Code(s): F32.9 - Major depressive disorder, single episode, unspecified Code(s): F32.9 - Major depressive disorder, single episode, unspecified Status: Chronic Assessment and Plan: Mood stable. Continue to monitor on fluoxetine and trazodone. (10) Chronic lower back pain: Qualifiers: Back pain laterality: unspecified Sciatica presence: unspecified whether sciatica present Qualified Code(s): M54.5 - Low back pain; G89.29 - Other chronic pain Code(s): M54.5 - Low back pain; G89.29 - Other chronic pain Status: Chronic Assessment and Plan: No acute issue. Continue home Percocet and baclofen. Will also continue gabapentin. (11) Gastroparesis: Code(s): K31.84 - Gastroparesis Status: Acute Assessment and Plan: No acute issue. Continue dicyclomine. DS: Summary Hospital Course Reason for hospitalization: Elevated blood sugar. Hospital Course: Date of Service of Discharge: October 23, 2019. History of Present Illness: Patient is a 63-year-old gentleman with known type 2 diabetes mellitus insulin requiring, hypertension, C0PD and history of DVT on chronic anticoagulation who presented to the emergency room with elevated blood sugars. Patient reports he been packing to moved to [place] intending to leave on the day of presentation. During this time, he has been checking his blood sugar which has been high and then normal. As he was unsure as to have to treat himself, he stopped taking his insulin 4 days prior to presentation. He does report polyuria and polydipsia. He generally feels ill and is exhausted. No recent fever, chills or sweats. No chest pain or shortness of breath. No abdominal pain, nausea or vomiting. In the emergency room initial glucose was 815 but anion gap was normal at 11. He was hydrated with IV fluids as well as given IV insulin. With these measures
== END 2019-10-23 18:07 | disposition home or self-care (01) | DRG 638 ==
LOC: ANHED 15:52 → ANHIMU 16:12
PROVIDERS: Nurse Practitioner; Admitting Provider Internal Medicine; Emergency Provider Emergency Medicine; PCP Family Medicine; Visit Provider Hospitalist
DX: E11.65 Type 2 diabetes mellitus with hyperglycemia (principal); E87.1 Hypo-osmolality and hyponatremia; Z79.4 Long term (current) use of insulin; J44.9 Chronic obstructive pulmonary disease, unspecified; F32.9 Major depressive disorder, single episode, unspecified; I10 Essential (primary) hypertension; F17.200 Nicotine dependence, unspecified, uncomplicated; Z72.0 Tobacco use; Z86.718 Personal history of other venous thrombosis and embolism; Z79.01 Long term (current) use of anticoagulants; K31.84 Gastroparesis; G47.33 Obstructive sleep apnea (adult) (pediatric); E78.5 Hyperlipidemia, unspecified
CPT/HCPCS: 36415; 36600; 71046; 80053; 81001; 82010; 82375; 82805; 82948; 83036; 83050; 83735; 84100; 84439; 84443; 84480; 85025; 85610; 86140; 96361; 96374; 96376; 99285; A9270; J1815; J2270; J7030

== ENCOUNTER 2020-10-29 14:50 | Outpatient (CLI) | payer MEDICARE, SELFPAY ==
--- NOTE | ~2020-10-29 | CT_ITS ---
EXAMINATION: CT abdomen pelvis w con EXAM DATE: 10/29/2020 15:35 INDICATION: Left flank pain. TECHNIQUE: Spiral CT of the abdomen and pelvis was performed following intravenous injection of 100 m L Omnipaque 350. Axial, coronal and sagittal images of the abdomen and pelvis were reviewed. The do se-length product (DLP) for this examination was 1522.02 mGy-cm. The exposure was tailored according to patient size (auto mA exposure control), and iterative reconstruction (ASIR) was used as addition al dose reduction technique. Comparison is made to prior examination from 09/12/2019. FINDINGS: The liver, spleen, adrenal glands and pancreas are unremarkable. There are cholecystectomy clips. Portal and splenic veins are patent. Kidneys enhance symmetrically. There is no hydronephr osis. Lobular renal contours. There is an exophytic 2 cm left renal cyst. Possible nonobstructing sma ll left inferior calyceal stone. The prostate is unremarkable. Small left inguinal fat-containing her bekah. The bladder is unremarkable. There is no retroperitoneal or pelvic lymphadenopathy. There is mild scattered arteriosclerotic disease. The appendix is normal. The stomach and small bowel are unremarkable. There is mild sigmoid colonic diverticulosis. There is no adjacent inflammatory change to suggest diverticulitis. There is expecte d amount of colonic stool. No free intraperitoneal gas. The heart is normal in size. There are n o pericardial or pleural effusions. There is a 1.2 cm left lower lobe nodule unchanged, probably non calcified granuloma. There are no osteoblastic or osteolytic lesions identified. Lumbar fusion L3-S1 , laminectomies. Left hip arthroplasty hardware. IMPRESSION: 1. No acute intra-abdominal findings. 2. Small left inferior nonobstructing calyceal stone versus early contrast excretion. 3. Mild sigmoid diverticulosis. 4. Small left inguinal hernia. 5. Surgical changes Reviewed, dictated and finalized at location B. IMPRESSION: 1. No acute intra-abdominal findings. 2. Small left inferior nonobstructing calyceal stone versus early contrast exc retion. 3. Mild sigmoid diverticulosis. 4. Small left inguinal hernia. 5. Surgical changes
[2020-10-29 15:30] LABS: Estimated Glomerular Filt Rate > 60
== END 2020-10-29 14:51 | disposition home or self-care (01) ==
PROVIDERS: PCP Family Medicine; Visit Provider Family Medicine
DX: R10.9 Unspecified abdominal pain (principal); K57.30 Diverticulosis of large intestine without perforation or abscess without bleeding; K40.90 Unilateral inguinal hernia, without obstruction or gangrene, not specified as recurrent
CPT/HCPCS: 74177; Q9967

== ENCOUNTER 2021-01-02 13:18 | Emergency (ER) | payer MEDICARE, MEDICAID, SELFPAY ==
[2021-01-02] VITALS (8 sets, daily range): BP systolic 92–137; BP diastolic 49–83; PULSE 57–101; RESP 15–23; TEMP 35.7–37.2; O2SAT 87–99
--- NOTE | ~2021-01-02 | CT_ITS ---
EXAMINATION: CT abdomen pelvis w con DATE: 01/02/2021 14:43 INDICATION: Left flank pain. TECHNIQUE: Computed tomography (CT) of the abdomen and pelvis was performed with 100 mL Omnipaque 350 intravenous contrast. Automated exposure control and iterative reconstruction technique were employe d. The dose-length product was 1568.87 mGy-cm. COMPARISON: CT abdomen and pelvis 10/29/2020 FINDINGS: The visualized portions of the lung bases demonstrate mild atelectasis. No pleural effusion . The heart size is normal. There are coronary artery calcifications. No pericardial effusion. The li vinayak is normal. There are changes of cholecystectomy. The spleen, pancreas, and adrenal glands are nor mal. There is cortical thinning of the kidneys. There are cysts in left kidney measuring up to 2.5 cm . There are 2 stones in left kidney with the larger measuring 4 mm. There are no dilated loops of bow el. The appendix is normal. There are no pathologically enlarged lymph nodes. There is no free intrap eritoneal fluid. There is a left inguinal hernia containing fat. There is a small umbilical hernia co ntaining fat. There is a total left hip arthroplasty in near-anatomic alignment. There are changes of anterior and posterior fusion procedures from L3 to S1. There is mild thoracolumbar spondylosis. IMPRESSION: 1. Small nonobstructing left kidney stones. 2. Umbilical hernia and left inguinal hernia containing fat. Reviewed, dictated and finalized at location B.
--- NOTE | 2021-01-02 13:45 | ED.GENADULT ---
HPI - General Adult General Chief complaint: Abdominal Pain <Tiffanie Cee PA-C - Last Filed: 01/02/21 17:55> Stated complaint: flank pain <Tiffanie Cee PA-C - Last Filed: 01/02/21 17:55> Time Seen by Provider: 01/02/21 13:45 <Tiffanie eCe PA-C - Last Filed: 01/02/21 17:55> Source: patient <Tiffanie Cee PA-C - Last Filed: 01/02/21 17:55> Mode of arrival: ambulatory <Tiffanie Cee PA-C - Last Filed: 01/02/21 17:55> Limitations: no limitations <Tiffanie Cee PA-C - Last Filed: 01/02/21 17:55> History of Present Illness HPI narrative: Patient is here for evaluation of chronic left flank pain that has worsened in the last 3 days and today became unbearable. He states in the past she has been told he has diverticular disease and one small kidney stone. He is able to urinate without difficulty and is stooling normally. Denies any fever or blood in his urine or stool. He normally takes Commerce 10 mg 4 times a day, that has not been touching the pain. <Tiffanie Cee PA-C - Last Filed: 01/02/21 17:55> Onset (ago): day(s) <Tiffanie Cee PA-C - Last Filed: 01/02/21 17:55> Severity scale (1-10): 10 <Tiffanie Cee PA-C - Last Filed: 01/02/21 17:55> Quality: stabbing <COREY Farah Last Filed: 01/02/21 17:55> Pain Consistency: constant <COREY Farah Last Filed: 01/02/21 17:55> Relieving factors: none <COREY Farah Last Filed: 01/02/21 17:55> Exacerbating factors: movement <COREY Farah Last Filed: 01/02/21 17:55> Associated symptoms: denies other symptoms <Tiffanie Cee PA-C - Last Filed: 01/02/21 17:55> Related Data Home medications: Home Medications Medication Instructions Recorded Confirmed atorvastatin 40 mg PO HS 03/23/19 10/22/19 dicyclomine 20 mg PO TID 03/23/19 10/22/19 fluoxetine 40 mg PO DAILY 03/23/19 10/22/19 gabapentin 600 mg PO TID 03/23/19 10/22/19 icosapent ethyl [Vascepa] 1 g PO QID 03/23/19 10/22/19 lisinopril 5 mg PO DAILY 03/23/19 10/22/19 oxycodone-acetaminophen 1 tablet PO TID 03/23/19 10/22/19 trazodone 50 mg PO HS 03/23/19 10/22/19 warfarin 10 mg PO DAILY 03/23/19 10/22/19 baclofen 20 mg TID 10/22/19 10/22/19 <Tiffanie Cee PA-C - Last Filed: 01/02/21 17:55> Allergies/adverse reactions: Allergies Allergy/AdvReac Type Severity Reaction Status Date / Time furosemide Allergy Unknown Unknown Verified 01/02/21 14:44 <Tiffanie Cee PA-C - Last Filed: 01/02/21 17:55> Review of Systems Review of Systems: All systems reviewed & are unremarkable except as noted in HPI and below <Tiffanie Cee PA-C - Last Filed: 01/02/21 17:55> [facility] Past Medical History Medical History: Medical History Abdominal pain, chronic, left lower quadrant Chronic generalized abdominal pain due to adhesions Chronic anticoagulation Chronic anticoagulation Chronic lower back pain With history of lumbar spines are COPD (chronic obstructive pulmonary disease) Coronary artery disease Cardiac catheterization 25 years ago without need for intervention per patient report CVA (cerebral vascular accident) 1998 with residual left-sided weakness and impulse control issues Depression Diabetes mellitus Last hemoglobin A1c 6.23 October 2018 Diverticulitis With patient reported history of suspected prior diverticulitis with perforation resulting in scar formation and subsequent adhesion lysis at the time cholecystectomy Emphysema with both acute and chronic bronchitis History of deep venous thrombosis (DVT) of distal vein of left lower extremity 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 History of DVT (deep vein thrombosis) History of stroke HTN (hypertension) Hyperlipidemia Obstructive sleep apnea Patient refuses CPAP therapy MIKEY (obstructive
[2021-01-02 13:57] LABS: Basophils Absolute Auto 0.1 K/mm3 (0.0-0.1); Basophils Percent Auto 0.6 % (0.2-1.2); Eosinophils Absolute Auto 0.3 K/mm3 (0-0.3); Hematocrit 39.6 % (42.0-52.0); Immature Granulocyte Absolute 0.05 K/mm3 (0.00-0.031); Immature Granulocyte Percent A 0.4 % (0-0.5); Lymphocytes Absolute Auto 2.62 K/mm3 (0.9-3.2); Lymphocytes Percent Auto 19.9 % (18.3-44.2); Mean Corpuscular HGB Conc 32.8 g/dl (32-36); Mean Corpuscular Hemoglobin 31.4 pg (26-34); Mean Corpuscular Volume 95.7 fl (80-100); Mean Platelet Volume 9.2 fl (7.4-10.4); Monocytes Absolute Auto 0.9 K/mm3 (0.1-0.6); Monocytes Percent Auto 6.6 % (2.6-8.5); Neutrophils Absolute Auto 9.3 K/mm3 (1.3-6.7); Neutrophils Percent Auto 70.5 % (45.5-73.1); Platelet Count Result 242 k/mm3 (150-375); Red Blood Count 4.14 M/mm3 (4.6-6.20); Red Cell Distribution Width 12.6 % (11.5-14.5); White Blood Count 13.2 K/mm3 (4.5-10.0)
[2021-01-02 14:00] LABS: Add Urine Microscopic? YES; Appearance Urine Clear (Clear); Bilirubin Urine Negative (Negative); Blood Urine Negative (Negative); Color Urine Yellow (Yellow); Glucose Urine UA 3+ mg/dL (Negative); Ketones Urine Negative (Negative); Leukocyte Esterase Ur Negative LEU/UL (Negative); Mucus Urine Rare /lpf; Nitrate Urine Negative (Negative); Protein Urine 1+ mg/dL (Negative); Specific Grav Ur 1.029 (1.001-1.035); Squamous Epithelial Cell Urine Rare /hpf (Few); WBC Urine 0-3 /hpf
[2021-01-02] MEDS: HYDROmorphone HCL INJ (*CRX) 1 MG/ML SYR 2 MG IV PUSH (14:05)
[2021-01-02 14:12] LABS: Anion Gap 12 mmol/L (8-16); Blood Urea Nitrogen 21 mg/dL (9-20); Carbon Dioxide 21 mmol/L (22-30); Chloride 106 mmol/L (98-107); Estimated CRCL calculation 104 ml/min; Estimated Glomerular Filt Rate > 60; Glucose 233 mg/dL (65-110); Potassium 4.5 mmol/L (3.4-5.0); Sodium 139 mmol/L (137-145)
[2021-01-02] MEDS: SODIUM CHLORIDE 0.9% IV 1,000 ML 999 ML IV CONT ×2 (14:23→16:19)
[2021-01-02] MEDS: HYDROmorphone HCL INJ (*CRX) 1 MG/ML SYR IV PUSH (16:19)
[2021-01-02] MEDS: TAMSULOSIN HCL 0.4 MG CAPSULE PO (16:21)
[2021-01-02 17:38] LABS: Glucose Point of Care 120 mg/dl (65-105)
== END 2021-01-02 18:16 | disposition home or self-care (01) ==
PROVIDERS: Emergency Medicine; Emergency Provider General Practice; PCP Family Medicine
DX: E11.65 Type 2 diabetes mellitus with hyperglycemia (principal); M25.552 Pain in left hip; G89.29 Other chronic pain; N20.0 Calculus of kidney; I25.10 Atherosclerotic heart disease of native coronary artery without angina pectoris; I69.954 Hemiplegia and hemiparesis following unspecified cerebrovascular disease affecting left non-dominant side; J43.9 Emphysema, unspecified; I10 Essential (primary) hypertension; E78.5 Hyperlipidemia, unspecified; G47.33 Obstructive sleep apnea (adult) (pediatric); Z86.718 Personal history of other venous thrombosis and embolism; Z79.01 Long term (current) use of anticoagulants; Z96.652 Presence of left artificial knee joint; F17.210 Nicotine dependence, cigarettes, uncomplicated; K42.9 Umbilical hernia without obstruction or gangrene; K40.90 Unilateral inguinal hernia, without obstruction or gangrene, not specified as recurrent; Z79.4 Long term (current) use of insulin
CPT/HCPCS: 36415; 74177; 80048; 81001; 82948; 85025; 96361; 96374; 96376; 99284; A9270; J1170; J7030; Q9967

== ENCOUNTER 2021-01-28 11:31 | Emergency (ER) | payer MEDICARE, MEDICAID, SELFPAY ==
--- NOTE | ~2021-01-28 | CT_ITS ---
EXAMINATION: CT abdomen pelvis w con EXAM DATE: 01/28/2021 14:17 INDICATION: Left flank pain radiating to the left abdomen. History of kidney stones. Nausea and vomit ing. TECHNIQUE: Spiral CT of the abdomen and pelvis was performed following intravenous injection of 100 m L Omnipaque 350. Axial, coronal and sagittal images of the abdomen and pelvis were reviewed. The do se-length product (DLP) for this examination was 1511.80 mGy-cm. The exposure was tailored according to patient size (auto mA exposure control), and iterative reconstruction (ASIR) was used as addition al dose reduction technique. Comparison is made to prior examination from 01/02/2021. FINDINGS: The liver, spleen, adrenal glands and pancreas are unremarkable. There are cholecystectomy clips. Portal and splenic veins are patent. Kidneys enhance symmetrically. There is no hydronephr osis. There is a 4 mm left inferior calyceal stone. Exophytic left renal cyst measuring 2.2 cm. The prostate is unremarkable. The bladder is unremarkable. There is no retroperitoneal or pelvic lympha denopathy. There is mild to moderate scattered arteriosclerotic disease. The appendix is normal. There is mild to moderate scattered colonic diverticulosis. There is no philip cent inflammatory change to suggest diverticulitis. The stomach and small bowel are unremarkable. Th ere is expected amount of colonic stool. No free intraperitoneal gas. The heart is normal in size . There are no pericardial or pleural effusions. The lung bases are unremarkable. Mild lumbar levo scoliosis. Lumbar fusion L3-S1. There is left hip replacement. IMPRESSION: 1. No acute intra-abdominal findings. 2. Scattered colonic diverticulosis. 3. Nonobstructing left nephrolithiasis. Reviewed, dictated and finalized at location B.
[2021-01-28 11:39] VITALS: BP 141/69; PULSE 94; RESP 18; TEMP 35.9; O2SAT 100
[2021-01-28 11:48] LABS: Basophils Absolute Auto 0.1 K/mm3 (0.0-0.1); Basophils Percent Auto 0.6 % (0.2-1.2); Eosinophils Absolute Auto 0.3 K/mm3 (0-0.3); Hematocrit 40.8 % (42.0-52.0); Hemoglobin 13.6 g/dL (14.0-18.0); Immature Granulocyte Absolute 0.07 K/mm3 (0.00-0.031); Immature Granulocyte Percent A 0.5 % (0-0.5); Lymphocytes Absolute Auto 2.99 K/mm3 (0.9-3.2); Lymphocytes Percent Auto 20.3 % (18.3-44.2); Mean Corpuscular HGB Conc 33.3 g/dl (32-36); Mean Corpuscular Hemoglobin 31.7 pg (26-34); Mean Corpuscular Volume 95.1 fl (80-100); Mean Platelet Volume 8.8 fl (7.4-10.4); Monocytes Percent Auto 6.5 % (2.6-8.5); Neutrophils Absolute Auto 10.3 K/mm3 (1.3-6.7); Neutrophils Percent Auto 70.1 % (45.5-73.1); Platelet Count Result 244 k/mm3 (150-375); Red Blood Count 4.29 M/mm3 (4.6-6.20); Red Cell Distribution Width 12.6 % (11.5-14.5); White Blood Count 14.7 K/mm3 (4.5-10.0)
[2021-01-28 12:30] LABS: Add Urine Microscopic? YES; Appearance Urine Clear (Clear); Bilirubin Urine 1+ (Negative); Blood Urine Negative (Negative); Color Urine Amber (Yellow); Glucose Urine UA 3+ mg/dL (Negative); Ketones Urine Negative (Negative); Leukocyte Esterase Ur Negative LEU/UL (Negative); Mucus Urine Rare /lpf; Nitrate Urine Negative (Negative); Protein Urine 1+ mg/dL (Negative); RBC Urine 0-2 /hpf (0-2); Specific Grav Ur 1.027 (1.001-1.035); Squamous Epithelial Cell Urine Rare /hpf (Few); WBC Urine 0-3 /hpf
--- NOTE | 2021-01-28 12:53 | ED.BACK ---
HPI - Back Pain/Injury General Chief Complaint: Back Pain/Injury Stated Complaint: left lower back/abd pain Time Seen by Provider: 01/28/21 12:27 Source: patient Mode of arrival: ambulatory Limitations: no limitations History of Present Illness HPI Narrative: This is a 65 year old male that presents to the ER for left sided low back pain. Reports he does have chronic pain for which he is on opioids at home. His pain today worsened and started radiating into the abdomen. Does report history of kidney stones and diverticulitis. Reports chronic diarrhea. Denies fever, nausea, vomiting, dysuria, hematuria, or hematochezia. Related Data Home Medications Medication Instructions Recorded Confirmed atorvastatin 40 mg PO HS 03/23/19 10/22/19 dicyclomine 20 mg PO TID 03/23/19 10/22/19 fluoxetine 40 mg PO DAILY 03/23/19 10/22/19 gabapentin 600 mg PO TID 03/23/19 10/22/19 icosapent ethyl [Vascepa] 1 g PO QID 03/23/19 10/22/19 lisinopril 5 mg PO DAILY 03/23/19 10/22/19 oxycodone-acetaminophen 1 tablet PO TID 03/23/19 10/22/19 trazodone 50 mg PO HS 03/23/19 10/22/19 warfarin 10 mg PO DAILY 03/23/19 10/22/19 baclofen 20 mg TID 10/22/19 10/22/19 Allergies Allergy/AdvReac Type Severity Reaction Status Date / Time furosemide Allergy Unknown Unknown Verified 01/28/21 13:09 Review of Systems Review of Systems: CONSTITUTIONAL: Denies fever GASTROINTESTINAL: Reports abdominal pain. Denies nausea, vomiting, or diarrhea. GENITOURINARY: Denies dysuria or hematuria. SKIN: Denies rash MUSCULOSKELETAL: Reports back pain, joint pain, and myalgia. NEUROLOGIC: Denies numbness, or weakness. All systems reviewed & are unremarkable except as noted in HPI and below PMFSH Past Medical History Medical History Abdominal pain, chronic, left lower quadrant Chronic generalized abdominal pain due to adhesions Chronic anticoagulation Chronic anticoagulation Chronic lower back pain With history of lumbar spines are COPD (chronic obstructive pulmonary disease) Coronary artery disease Cardiac catheterization 25 years ago without need for intervention per patient report CVA (cerebral vascular accident) 1998 with residual left-sided weakness and impulse control issues Depression Diabetes mellitus Last hemoglobin A1c 6.23 October 2018 Diverticulitis With patient reported history of suspected prior diverticulitis with perforation resulting in scar formation and subsequent adhesion lysis at the time cholecystectomy Emphysema with both acute and chronic bronchitis History of deep venous thrombosis (DVT) of distal vein of left lower extremity 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 History of DVT (deep vein thrombosis) History of stroke HTN (hypertension) Hyperlipidemia Obstructive sleep apnea Patient refuses CPAP therapy MIKEY (obstructive sleep apnea) Tobacco abuse disorder Type 2 diabetes mellitus with hyperglycemia Surgical History Surgical History H/O cervical spine surgery H/O lumbosacral spine surgery H/O total hip arthroplasty Left H/O umbilical hernia repair Performed at the same time is cholecystectomy History of cervical spinal surgery History of cholecystectomy History of lumbosacral spine surgery History of tonsillectomy History of total left hip arthroplasty With failure of the 1st replacement and subsequent 2nd surgery all performed in the last year so. History of umbilical hernia repair Hx of cholecystectomy Laparoscopic Hx of total knee arthroplasty Left total knee arthroplasty Family History Family History Father Acute myocardial infarction Cerebrovascular accident Mother Diabetes mellitus Acute myocardial infarction Congestive heart failure Cerebrovascular accident Hypertension Chronic kidney d
[2021-01-28] MEDS: SODIUM CHLORIDE 0.9% IV 1,000 ML 999 ML (13:08)
[2021-01-28] MEDS: ONDANSETRON INJ 4 MG/2 ML VIAL IV PUSH (13:08)
[2021-01-28] MEDS: MORPHINE SULFATE (*CRX) 4 MG/ML INJ IV PUSH (13:08)
[2021-01-28 13:40] LABS: Anion Gap 14 mmol/L (8-16); Blood Urea Nitrogen 16 mg/dL (9-20); Calcium 9.5 mg/dL (8.4-10.2); Carbon Dioxide 21 mmol/L (22-30); Chloride 104 mmol/L (98-107); Estimated CRCL calculation 86 ml/min; Estimated Glomerular Filt Rate > 60; Glucose 247 mg/dL (65-110); Potassium 4.5 mmol/L (3.4-5.0); Sodium 139 mmol/L (137-145)
[2021-01-28] MEDS: HYDROmorphone HCL INJ (*CRX) 1 MG/ML SYR IV PUSH (14:27)
[2021-01-28 16:00] VITALS: BP 136/76; PULSE 94; RESP 18; O2SAT 99
== END 2021-01-28 16:02 | disposition home or self-care (01) ==
PROVIDERS: Family Medicine; Emergency Provider Emergency Medicine; PCP Family Medicine
DX: M54.5 Low back pain (principal); I25.10 Atherosclerotic heart disease of native coronary artery without angina pectoris; J43.9 Emphysema, unspecified; I69.954 Hemiplegia and hemiparesis following unspecified cerebrovascular disease affecting left non-dominant side; E11.9 Type 2 diabetes mellitus without complications; I10 Essential (primary) hypertension; E78.5 Hyperlipidemia, unspecified; G47.33 Obstructive sleep apnea (adult) (pediatric); F32.9 Major depressive disorder, single episode, unspecified; Z86.718 Personal history of other venous thrombosis and embolism; Z87.442 Personal history of urinary calculi; Z79.01 Long term (current) use of anticoagulants; Z79.4 Long term (current) use of insulin; Z96.642 Presence of left artificial hip joint; Z96.652 Presence of left artificial knee joint; F17.210 Nicotine dependence, cigarettes, uncomplicated; N20.0 Calculus of kidney
CPT/HCPCS: 36415; 74177; 80048; 81001; 85025; 96361; 96365; 96375; 99284; J0131; J1170; J2270; J2405; J7030; Q9967

== ENCOUNTER 2021-03-19 12:46 | Outpatient (CLI) | payer MEDICARE, MEDICAID, SELFPAY ==
--- NOTE | ~2021-03-19 | XR_ITS ---
EXAMINATION: XR lumbar spine 2-3V DATE: 03/19/2021 13:19 INDICATION: Low back pain TECHNIQUE: Anteroposterior and lateral views of the lumbar spine, and cone-down lateral view of the l umbosacral junction were obtained. COMPARISON: 10/25/2018 FINDINGS: There are changes of anterior and posterior fusion from L3 through S1. Vertebral body align ment is normal. There is no fracture. There are 11 degrees of lumbar levoscoliosis. There is moderate loss of intervertebral disc space height at L1-2 and L2-3. Small degenerative osteophytes project fr om the anterior endplates of multiple vertebral bodies. Changes of left total hip arthroplasty are no celeste. There are cholecystectomy clips in the right upper quadrant. IMPRESSION: 1. Moderate lumbar spondylosis without acute findings or significant interval change. Reviewed, dictated and finalized at location B. IMPRESSION: 1. Moderate lumbar spondylosis without acute findings or significant interval bina tran
--- NOTE | ~2021-03-19 | XR_ITS ---
EXAMINATION: XR hip LT min 2V INDICATION: Left hip pain TECHNIQUE: Two views of the left hip are obtained. COMPARISON: None available FINDINGS: There are changes of left total hip arthroplasty. Alignment is normal. No fracture is ident ified. There is a moderate amount of heterotopic ossification near the lesser trochanter and proximal femur. The soft tissues are unremarkable. IMPRESSION: 1. No acute osseous abnormality. Reviewed, dictated and finalized at location B.
--- NOTE | ~2021-03-19 | XR_ITS ---
EXAMINATION: XR hip RT min 2V DATE: 03/19/2021 13:20 INDICATION: Right hip pain TECHNIQUE: Two views of the right hip were obtained. COMPARISON: None. FINDINGS: Bone alignment is normal. There is no fracture. The soft tissues are unremarkable. There is mild osteoarthritis of the hip. IMPRESSION: 1. Mild osteoarthritis. Reviewed, dictated and finalized at location B. IMPRESSION: 1. Mild osteoarthritis.
== END 2021-03-19 12:47 | disposition home or self-care (01) ==
LOC: ANHIMG 12:53
PROVIDERS: PCP Family Medicine; Visit Provider Family Medicine
DX: M25.50 Pain in unspecified joint (principal); M16.11 Unilateral primary osteoarthritis, right hip; M47.896 Other spondylosis, lumbar region
CPT/HCPCS: 72100; 73502

== ENCOUNTER 2021-03-20 21:47 | Observation (INO) | payer MEDICARE, MEDICAID, SELFPAY ==
--- NOTE | ~2021-03-20 | XR_ITS ---
XR fluoroscopy no charge DATE: 03/21/2021 16:56 INDICATION: Stone extraction TECHNIQUE: 6 spot C-arm images 33.1 seconds fluoroscopy time 1.19 mGym2 COMPARISON: 03/21/2021 CT abdomen pelvis FINDINGS: Posterior and interbody spinal fusion at L3-S1. Status post left total hip arthroplasty. The left ureter was accessed via cystoscopy guidewire placed in the left ureter. IMPRESSION: Left ureterovesical stone extraction; please refer to the urologist procedure report. Reviewed, dictated and finalized at Location A. Reviewed, dictated and finalized at location A.
--- NOTE | ~2021-03-20 | XR_ITS ---
EXAMINATION: XR chest 1V INDICATION: Shortness of breath TECHNIQUE: PA view of the chest is obtained. COMPARISON: 10/22/2019 FINDINGS: There is mild atelectasis of the lung bases. No pleural effusion or pneumothorax is identif ied. The cardiomediastinal silhouette is normal. Thoracolumbar levocurvature is noted. IMPRESSION: 1. Mild atelectasis of the lung bases. Reviewed, dictated and finalized at location B.
--- NOTE | ~2021-03-20 | CT_ITS ---
EXAMINATION: CT abdomen pelvis wo con DATE: 03/21/2021 00:25 INDICATION: Left flank pain, hematuria TECHNIQUE: Computed tomography (CT) of the abdomen and pelvis was performed without intravenous contr ast. The dose-length product (DLP) was 1645.26 mGy-cm. Automated exposure control and iterative recon struction technique were employed. COMPARISON: 01/28/2021 FINDINGS: Minimal dependent atelectasis is present in the lung bases. The heart size is normal. The g allbladder is surgically absent. The liver, spleen, pancreas, and adrenal glands are normal. There is a 5 mm stone at the left ureterovesicular junction which causes mild hydroureteronephrosis. There is a 4 mm nonobstructing stone of the left kidney lower pole. There is a 2.1 cm cyst of the left kidney . The right kidney is unremarkable. There is calcified atherosclerosis of the aorta and many of the o ther arteries. No pathologically enlarged abdominal or pelvic lymph nodes are identified. There is no free intraperitoneal gas or evidence of bowel obstruction. The appendix is normal. There are changes of anterior and posterior fusion with laminectomy from L3 through S1. There is a fat-containing umbi lical hernia. Left hip arthroplasty is noted. IMPRESSION: 1. 5 mm stone at the left ureterovesicular junction causing mild hydroureteronephrosis. 2. Nonobstructing left nephrolithiasis. Reviewed, dictated and finalized at location B. IMPRESSION: 1. 5 mm stone at the left ureterovesicular junction causing mild hydroureterone phrosis. 2. Nonobstructing left nephrolithiasis.
[2021-03-20 22:31] VITALS: BP 108/55; PULSE 93; RESP 16; TEMP 36.6; O2SAT 96
[2021-03-20 23:08] LABS: Add Urine Microscopic? YES; Appearance Urine Cloudy (Clear); Bilirubin Urine Negative (Negative); Blood Urine 3+ (Negative); Color Urine Amber (Yellow); Glucose Urine UA Negative (Negative); Ketones Urine Negative (Negative); Leukocyte Esterase Ur Negative LEU/UL (Negative); Nitrate Urine Negative (Negative); Protein Urine 2+ mg/dL (Negative); RBC Urine >75 /hpf (0-2); Specific Grav Ur 1.024 (1.001-1.035); Urobilinogen Urine Negative mg/dL (<2.0)
[2021-03-20 23:32] LABS: Basophils Absolute Auto 0.1 K/mm3 (0.0-0.1); Basophils Percent Auto 0.6 % (0.2-1.2); Eosinophils Absolute Auto 0.2 K/mm3 (0-0.3); Eosinophils Percent Auto 1.3 % (0-4.4); Hematocrit 37.3 % (42.0-52.0); Hemoglobin 12.5 g/dL (14.0-18.0); Immature Granulocyte Absolute 0.05 K/mm3 (0.00-0.031); Immature Granulocyte Percent A 0.4 % (0-0.5); Lymphocytes Absolute Auto 2.77 K/mm3 (0.9-3.2); Lymphocytes Percent Auto 21.8 % (18.3-44.2); Mean Corpuscular HGB Conc 33.5 g/dl (32-36); Mean Corpuscular Hemoglobin 31.9 pg (26-34); Mean Corpuscular Volume 95.2 fl (80-100); Mean Platelet Volume 8.9 fl (7.4-10.4); Monocytes Absolute Auto 0.9 K/mm3 (0.1-0.6); Monocytes Percent Auto 7.1 % (2.6-8.5); Neutrophils Absolute Auto 8.7 K/mm3 (1.3-6.7); Neutrophils Percent Auto 68.8 % (45.5-73.1); Platelet Count Result 224 k/mm3 (150-375); Red Blood Count 3.92 M/mm3 (4.6-6.20); Red Cell Distribution Width 12.3 % (11.5-14.5); White Blood Count 12.7 K/mm3 (4.5-10.0)
--- NOTE | 2021-03-20 23:51 | ED.MALEGU ---
HPI - Male Genitourinary General Chief complaint: Urogenital-Male Stated complaint: blood in urine Time Seen by Provider: 03/20/21 23:06 Source: patient Mode of arrival: ambulatory Limitations: no limitations History of Present Illness HPI Narrative: 65-year-old male with history of chronic back pain as well as kidney stones complaining of blood in his urine as well as left back pain radiating to the left lower abdomen. Sudden onset prior to arrival. No previous history of gross hematuria. No fever, no vomiting, no nausea. No dysuria no urgency. Patient is on warfarin. Pain described as sharp constant improved with nothing worsened by nothing. No fever, no vomiting. Pain sharp, colicky. Related Data Home Medications Medication Instructions Recorded Confirmed atorvastatin 40 mg PO HS 03/23/19 03/21/21 dicyclomine 20 mg PO TID 03/23/19 03/21/21 fluoxetine 40 mg PO DAILY 03/23/19 03/21/21 gabapentin 500 mg PO TID 03/23/19 03/21/21 icosapent ethyl [Vascepa] 1 g PO QID 03/23/19 03/21/21 lisinopril 5 mg PO DAILY 03/23/19 03/21/21 oxycodone-acetaminophen 1 tablet PO TID 03/23/19 03/21/21 trazodone 50 mg PO HS 03/23/19 03/21/21 baclofen 20 mg TID 10/22/19 03/21/21 Levemir FlexTouch U-100 Insuln 25 unit SUBCUT HS 03/21/21 03/21/21 rivaroxaban [Xarelto] 20 mg PO DAILY 03/21/21 03/21/21 Allergies Allergy/AdvReac Type Severity Reaction Status Date / Time furosemide AdvReac Unknown can't void Verified 03/21/21 15:19 morphine AdvReac Unknown Headache Verified 03/21/21 15:19 Review of Systems Review of Systems: CONSTITUTIONAL: no fever, no weight loss, no confusion EYES: no vision changes, no eye pain ENT: no rhinorrhea, no sore throat, no difficulty swallowing CARDIOVASCULAR: prior chest pain, no leg edema, no palpitations RESPIRATORY: no cough, no shortness of breath, no hemoptysis GASTROINTESTINAL: positive abdominal pain, no nausea, no vomiting, no diarrhea GENITOURINARY: positive L flank pain, no dysuria, ositive hematuria SKIN: no rash, no jaundice MUSCULOSKELETAL: no back pain, no trauma. NEUROLOGIC: No headache, no dizziness, no focal weakness PSYCHIATRIC: No hallucinations, no suicidal ideation [facility] Past Medical History Medical History Abdominal pain, chronic, left lower quadrant Chronic generalized abdominal pain due to adhesions Chronic anticoagulation Chronic anticoagulation Chronic lower back pain With history of lumbar spines are COPD (chronic obstructive pulmonary disease) Coronary artery disease Cardiac catheterization 25 years ago without need for intervention per patient report CVA (cerebral vascular accident) 1998 with residual left-sided weakness and impulse control issues Depression Diabetes mellitus Last hemoglobin A1c 6.23 October 2018 Diverticulitis With patient reported history of suspected prior diverticulitis with perforation resulting in scar formation and subsequent adhesion lysis at the time cholecystectomy Emphysema with both acute and chronic bronchitis History of deep venous thrombosis (DVT) of distal vein of left lower extremity 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 History of DVT (deep vein thrombosis) History of stroke HTN (hypertension) Hyperlipidemia Obstructive sleep apnea Patient refuses CPAP therapy MIKEY (obstructive sleep apnea) Tobacco abuse disorder Type 2 diabetes mellitus with hyperglycemia Surgical History Surgical History H/O cervical spine surgery H/O lumbosacral spine surgery H/O total hip arthroplasty Left H/O umbilical hernia repair Performed at the same time is cholecystectomy History of cervical spinal surgery History of cholecystectomy History of lumbosacral spine surgery History of tonsillectomy History of total left hip arthroplasty With failure of the 1st replacement and subsequent 2nd
[2021-03-20 23:52] VITALS: PULSE 74; RESP 21
[2021-03-20] MEDS: ALBUTEROL SULFATE NEB 2.5 MG/0.5 ML INH INHALATION (23:52)
[2021-03-21] VITALS (23 sets, daily range): BP systolic 99–138; BP diastolic 38–89; PULSE 59–94; RESP 14–20; TEMP 36–36.6; O2SAT 92–100; BMI 39.5
[2021-03-21] MEDS: KETOROLAC 15 MG/ML VIAL (*BKC) IV PUSH (00:05)
[2021-03-21] MEDS: SODIUM CHLORIDE 0.9% IV 1,000 ML 999 ML IV CONT ×2 (00:05→03:21)
[2021-03-21 00:10] LABS: Alanine Aminotransferase 27 U/L (4-50); Albumin Level 4.4 g/dL (3.5-5.1); Alkaline Phosphatase 93 U/L (38-126); Anion Gap 13 mmol/L (8-16); Aspartate Amino Transferase 38 U/L (17-59); Bilirubin,Total 0.5 mg/dL (0.2-1.3); Blood Urea Nitrogen 18 mg/dL (9-20); Calcium 9.4 mg/dL (8.4-10.2); Carbon Dioxide 22 mmol/L (22-30); Chloride 101 mmol/L (98-107); Estimated CRCL calculation 65 ml/min; Estimated Glomerular Filt Rate 47; Glucose 149 mg/dL (65-110); Lipase 81 U/L (23-300); Potassium 5.2 mmol/L (3.4-5.0); Sodium 136 mmol/L (137-145)
[2021-03-21 00:20] LABS: Troponin I < 0.012 ng/mL (0.000-0.034)
[2021-03-21] MEDS: MAGNESIUM SULF 2 GM/WATER 50ML 2 GM/50 ML BAG IVPB (00:39)
--- NOTE | 2021-03-21 00:53 | ECG_ITS ---
Measurements Intervals [place] Rate: 64 P: 15 MN: 204 QRS: 2 QRSD: 99 T: 44 QT: 414 QTc: 427 Interpretive Statements SINUS RHYTHM BORDERLINE AV CONDUCTION DELAY BASELINE WANDER- I, II, III BORDERLINE ECG Electronically Signed On 03-21-2021 8:04:17 CDT by Carlos Rose D.O.
--- NOTE | 2021-03-21 01:20 | PC.NURSE ---
while pt sleeping pt O2 saturation 88% placed pt on 2L of Oxygen. pt O2 is 97%
[2021-03-21 01:37] LABS: INR 1.4; Prothrombin Time 16.6 Seconds (11.1-14.7)
[2021-03-21 01:38] LABS: Partial Thromboplastin Time 32.9 SECONDS (22.3-36.8)
--- NOTE | 2021-03-21 05:27 | ADMGEN ---
This patient, Venkat Saul II, was admitted to Medical Room 242-01. Patient/family oriented to hospital policies and general routines including ID bracelet, bed and alarms, visiting hours, pain management, procedures, bathroom and other care routines, personal items, smoking policy, room service/diet, and visiting hours. Information on how to activate the Rapid Response Team has been discussed. Patient/Family are encouraged to report perceived risks to care and to ask questions if they do not understand what they are told or what they should do.
--- NOTE | 2021-03-21 05:40 | PM.IMHP ---
H&P: HPI History of Present Illness Date/Time: 03/21/21 05:40 Chief Complaint: Low back pain Narrative: 65-year-old male with history of chronic back pain as well as kidney stones presents to the ED today with complaint of left-sided back pain as well as right-sided back pain. He reports that his right-sided back pain has been ongoing for past few days however the left-sided back pain has been ongoing on and off for several months now. He recently had some x-rays done the result of which is unknown to him. He also reports he had some blood coming out of his urine few days back and has been having some burning urination and difficulty urinating associated with left-sided lower back pain which radiates to the front to the groin area. Was evaluated with a CT scan of the abdomen and pelvis in the ED which showed left distal ureteral stone with mild hydronephrosis he has hands getting admitted for further evaluation and management of this. He denies any fever or chills. He also is on chronic Xarelto which he takes for his lower extremity DVT in the past. No nausea or vomiting or abdominal pain. Review of Systems Review of Systems: - CONSTITUTIONAL: Denies weight loss, fever and chills. - HEENT: Denies changes in vision and hearing - RESPIRATORY: Denies SOB and cough. - CV: Denies palpitations and CP. - GI: Denies abdominal pain, nausea, vomiting and diarrhea. - : Reports dysuria and denies urinary frequency. - MSK: Denies myalgia and joint pain. - SKIN: Denies rash and pruritus. - NEUROLOGICAL: Denies headache and syncope. - PSYCHIATRIC: Denies recent changes in mood. Denies anxiety and depression. All systems reviewed & are unremarkable except as noted in HPI and below Constitutional: Constitutional: Reports fatigue and Reports weakness Neurologic: Reports weakness Endocrine: Endocrine: Reports fatigue PMFSH Past Medical History Medical History Abdominal pain, chronic, left lower quadrant Chronic generalized abdominal pain due to adhesions Chronic anticoagulation Chronic anticoagulation Chronic lower back pain With history of lumbar spines are COPD (chronic obstructive pulmonary disease) Coronary artery disease Cardiac catheterization 25 years ago without need for intervention per patient report CVA (cerebral vascular accident) 1998 with residual left-sided weakness and impulse control issues Depression Diabetes mellitus Last hemoglobin A1c 6.23 October 2018 Diverticulitis With patient reported history of suspected prior diverticulitis with perforation resulting in scar formation and subsequent adhesion lysis at the time cholecystectomy Emphysema with both acute and chronic bronchitis History of deep venous thrombosis (DVT) of distal vein of left lower extremity 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 History of DVT (deep vein thrombosis) History of stroke HTN (hypertension) Hyperlipidemia Obstructive sleep apnea Patient refuses CPAP therapy MIKEY (obstructive sleep apnea) Tobacco abuse disorder Type 2 diabetes mellitus with hyperglycemia Surgical History Surgical History H/O cervical spine surgery H/O lumbosacral spine surgery H/O total hip arthroplasty Left H/O umbilical hernia repair Performed at the same time is cholecystectomy History of cervical spinal surgery History of cholecystectomy History of lumbosacral spine surgery History of tonsillectomy History of total left hip arthroplasty With failure of the 1st replacement and subsequent 2nd surgery all performed in the last year so. History of umbilical hernia repair Hx of cholecystectomy Laparoscopic Hx of total knee arthroplasty Left total knee arthroplasty Family History Family History (Updated 03/21/21 @ 05:46 by Jonah Jacobson RN) Father Acute myocardial infa
--- NOTE | 2021-03-21 07:19 | WPDURCON ---
Assessment and Plan Assessment and plan (1) Hematuria: Code(s): R31.9 - Hematuria, unspecified Status: Acute (2) Left ureteral stone: Code(s): N20.1 - Calculus of ureter Status: Acute Assessment and Plan: Cystoscopy, left ureteroscopy with stone extraction Urology Consult Note HPI Date Seen: 03/21/21 Requesting Physician: Birdie Miguel MD Primary Care Provider: Jamie Coronado, Consult Narrative Narrative: Venkat Saul II is a 65 year old male Who reports having spontaneously passed a ureteral stone several years ago. He presents to the emergency department with 2 month history of intermittent left flank pain and recent onset hematuria. CT imaging demonstrates a 3 mm obstructing left distal ureteral calculus. He reports intermittent nausea denies fevers or chills. Review of Systems Cardiovascular: Cardiovascular: Denies chest pain, Denies lightheadedness, Denies palpitations and Denies dyspnea Respiratory: Respiratory: Denies dyspnea Gastrointestinal: Gastrointestinal: Denies diarrhea, Denies nausea and Denies vomiting Genitourinary: Genitourinary: Denies hematuria and Denies dysuria Endocrine: Endocrine: Denies palpitations [facility] Past Medical History Medical History Abdominal pain, chronic, left lower quadrant Chronic generalized abdominal pain due to adhesions Chronic anticoagulation Chronic anticoagulation Chronic lower back pain With history of lumbar spines are COPD (chronic obstructive pulmonary disease) Coronary artery disease Cardiac catheterization 25 years ago without need for intervention per patient report CVA (cerebral vascular accident) 1998 with residual left-sided weakness and impulse control issues Depression Diabetes mellitus Last hemoglobin A1c 6.23 October 2018 Diverticulitis With patient reported history of suspected prior diverticulitis with perforation resulting in scar formation and subsequent adhesion lysis at the time cholecystectomy Emphysema with both acute and chronic bronchitis History of deep venous thrombosis (DVT) of distal vein of left lower extremity 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 History of DVT (deep vein thrombosis) History of stroke HTN (hypertension) Hyperlipidemia Obstructive sleep apnea Patient refuses CPAP therapy MIKEY (obstructive sleep apnea) Tobacco abuse disorder Type 2 diabetes mellitus with hyperglycemia Surgical History Surgical History H/O cervical spine surgery H/O lumbosacral spine surgery H/O total hip arthroplasty Left H/O umbilical hernia repair Performed at the same time is cholecystectomy History of cervical spinal surgery History of cholecystectomy History of lumbosacral spine surgery History of tonsillectomy History of total left hip arthroplasty With failure of the 1st replacement and subsequent 2nd surgery all performed in the last year so. History of umbilical hernia repair Hx of cholecystectomy Laparoscopic Hx of total knee arthroplasty Left total knee arthroplasty Family History Family History Father Acute myocardial infarction Cerebrovascular accident Mother Diabetes mellitus Acute myocardial infarction Congestive heart failure Chronic kidney disease Hypertension Cerebrovascular accident Family history of arthritis Sibling History of blood clots Acute myocardial infarction Congestive heart failure Chronic obstructive pulmonary disease Hypertension Cerebrovascular accident Family history of arthritis Sibling Chronic obstructive pulmonary disease Family history of arthritis Sibling Diabetes mellitus Family history of arthritis Sibling Gunshot wound Family history of arthritis Social History Social History (Reviewed
--- NOTE | 2021-03-21 07:24 | WPDHPUPDATE1 ---
History and Physical Update Update Date/Time: 03/21/21 07:24 History and Physical has been reviewed, including an updated exam of the patient. There are NO changes in the patient's condition. Risks, benefits, and alternatives have been discussed and questions answered. Patient agrees to proceed with procedure.
[2021-03-21] MEDS: SODIUM CHLORIDE 0.9% IV 1,000 ML 100 ML IV CONT ×2 (07:27→18:11)
[2021-03-21 08:00] LABS: Glucose Point of Care 136 mg/dl (65-105)
[2021-03-21] MEDS: DICYCLOMINE HCL 10 MG CAPSULE 20 MG PO (08:14)
[2021-03-21] MEDS: GABAPENTIN 400 MG CAPSULE PO (08:14)
[2021-03-21] MEDS: GABAPENTIN 100 MG CAPSULE PO (08:14)
[2021-03-21] MEDS: BACLOFEN 10 MG TABLET 20 MG BY MOUTH (08:14)
[2021-03-21] MEDS: OMEGA 3 POLYUNSAT FATTY ACIDS 1 GM CAP PO ×2 (08:14→22:20)
[2021-03-21] MEDS: FLUoxetine HCL 20 MG CAPSULE 40 MG PO (08:15)
[2021-03-21 09:02] LABS: Basophils Percent Auto 0.4 % (0.2-1.2); Eosinophils Absolute Auto 0.3 K/mm3 (0-0.3); Eosinophils Percent Auto 2.5 % (0-4.4); Hematocrit 34.9 % (42.0-52.0); Hemoglobin 11.8 g/dL (14.0-18.0); Immature Granulocyte Absolute 0.04 K/mm3 (0.00-0.031); Immature Granulocyte Percent A 0.4 % (0-0.5); Lymphocytes Absolute Auto 2.92 K/mm3 (0.9-3.2); Lymphocytes Percent Auto 26.3 % (18.3-44.2); Mean Corpuscular HGB Conc 33.8 g/dl (32-36); Mean Corpuscular Hemoglobin 31.9 pg (26-34); Mean Corpuscular Volume 94.3 fl (80-100); Mean Platelet Volume 9.3 fl (7.4-10.4); Monocytes Percent Auto 8.8 % (2.6-8.5); Neutrophils Absolute Auto 6.9 K/mm3 (1.3-6.7); Neutrophils Percent Auto 61.6 % (45.5-73.1); Platelet Count Result 229 k/mm3 (150-375); Red Cell Distribution Width 12.3 % (11.5-14.5); White Blood Count 11.1 K/mm3 (4.5-10.0)
[2021-03-21 09:16] LABS: Alanine Aminotransferase 23 U/L (4-50); Albumin Level 3.8 g/dL (3.5-5.1); Alkaline Phosphatase 93 U/L (38-126); Anion Gap 8 mmol/L (8-16); Aspartate Amino Transferase 30 U/L (17-59); Bilirubin,Total 0.4 mg/dL (0.2-1.3); Blood Urea Nitrogen 18 mg/dL (9-20); Calcium 8.6 mg/dL (8.4-10.2); Carbon Dioxide 24 mmol/L (22-30); Chloride 105 mmol/L (98-107); Estimated CRCL calculation 58 ml/min; Estimated Glomerular Filt Rate 41; Glucose 148 mg/dL (65-110); Magnesium 1.5 mg/dL (1.6-2.3); Sodium 137 mmol/L (137-145)
[2021-03-21 12:12] LABS: Glucose Point of Care 149 mg/dl (65-105)
--- NOTE | 2021-03-21 14:26 | PM.IMPN ---
Progress Note: A&P Assessment and Plan (1) Left ureteral stone: Code(s): N20.1 - Calculus of ureter Status: Acute (2) Hydronephrosis: Qualifiers: Hydronephrosis type: with ureteral calculous obstruction Qualified Code(s): N13.2 - Hydronephrosis with renal and ureteral calculous obstruction Code(s): N13.30 - Unspecified hydronephrosis Status: Acute (3) Hematuria: Qualifiers: Hematuria type: gross Qualified Code(s): R31.0 - Gross hematuria Code(s): R31.9 - Hematuria, unspecified Status: Acute (4) Calculus, ureteral: Code(s): N20.1 - Calculus of ureter Status: Acute (5) Hypomagnesemia: Code(s): E83.42 - Hypomagnesemia Status: Acute (6) Hyperkalemia: Code(s): E87.5 - Hyperkalemia Status: Acute (7) YASMEEN (acute kidney injury): Code(s): N17.9 - Acute kidney failure, unspecified Status: Acute (8) Leukocytosis: Qualifiers: Leukocytosis type: unspecified Qualified Code(s): D72.829 - Elevated white blood cell count, unspecified Code(s): D72.829 - Elevated white blood cell count, unspecified Status: Acute (9) Chronic anemia: Code(s): D64.9 - Anemia, unspecified Status: Acute (10) Hyperlipidemia: Qualifiers: Hyperlipidemia type: unspecified Qualified Code(s): E78.5 - Hyperlipidemia, unspecified Code(s): E78.5 - Hyperlipidemia, unspecified Status: Chronic (11) HTN (hypertension): Qualifiers: Hypertension type: essential hypertension Qualified Code(s): I10 - Essential (primary) hypertension Code(s): I10 - Essential (primary) hypertension Status: Chronic (12) Depression: Qualifiers: Depression Type: unspecified Qualified Code(s): F32.9 - Major depressive disorder, single episode, unspecified Code(s): F32.9 - Major depressive disorder, single episode, unspecified Status: Chronic (13) Chronic anticoagulation: Code(s): 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 Left ureteral hydronephrosis due to Obstructing ureteral stone; obstructive uropathy: -patient is being followed by Urology -for procedure today -will hold Eliquis for today and can resume from tomorrow 2. YASMEEN secondary to obstructive uropathy: -strict I's and O's -creatinine up trending -continue IV fluids -will recheck creatinine in a.m. -avoid nephrotoxic medication 3. Hyperkalemia and hypomagnesemia: -hyperkalemia resolving -hypomagnesemia being repleted Time Spent With Patient Time with patient: 25 - 35 minutes Subjective Date/time seen: 03/21/21 14:26 Interval history: 65-year-old male medical history significant hypertension hyperlipidemia history DVT x3, CAD CVA history, type 2 diabetes, obstructive sleep apnea on CPAP, COPD and prior history of renal stones presented with left sided lumbar pain with hematuria. Patient is being managed as a case of obstructive uropathy with left-sided hydroureteronephrosis due to 5 mm stone. Urology was contacted from the ER and patient is scheduled to get cystoscopy today. UA is noted to be noninfectious however while noted to have hematuria. He was empirically started on Rocephin due to planned procedure. Creatinine noted to have slightly obtunded today. Urine output is being monitored. Review of Systems Review of Systems: A 10 point review of system was conducted which was otherwise negative Exam Narrative: General: alert, afebrile, comfortable not in acute distress Head: normocephalic, atraumatic Eyes: EOMI bilaterally, anicteric, no injection ENT: mois
--- NOTE | 2021-03-21 15:25 | WPDANESEPPF ---
Anes - Initial Pre Proc Eval Procedure: Operation Date: 03/21/21 15:15 Proposed Procedures p Cystoscopy, Left Ureteroscopy with Stone Extraction - Tommy Emanuel MD Date/Time: 03/21/21 15:25 Surgeon: Birdie Miguel MD Pre Op Diagnosis: ureteral stone Patient Data Age: 65 Gender: M Height: 1.85 m Weight: 136 kg Last Vital Signs Temp 36.3 C L 03/21/21 05:48 Pulse 67 03/21/21 08:00 Resp 20 03/21/21 05:48 BP 115/67 03/21/21 05:48 Pulse Ox 92 03/21/21 08:10 Allergies Allergy/AdvReac Type Severity Reaction Status Date / Time furosemide AdvReac Unknown can't void Verified 03/21/21 15:19 morphine AdvReac Unknown Headache Verified 03/21/21 15:19 Home Medications Medication Instructions Recorded Confirmed Type atorvastatin 40 mg PO HS 03/23/19 03/21/21 History dicyclomine 20 mg PO TID 03/23/19 03/21/21 History fluoxetine 40 mg PO DAILY 03/23/19 03/21/21 History gabapentin 500 mg PO TID 03/23/19 03/21/21 History icosapent ethyl [Vascepa] 1 g PO QID 03/23/19 03/21/21 History lisinopril 5 mg PO DAILY 03/23/19 03/21/21 History oxycodone-acetaminophen 1 tablet PO TID 03/23/19 03/21/21 History trazodone 50 mg PO HS 03/23/19 03/21/21 History baclofen 20 mg TID 10/22/19 03/21/21 History tamsulosin [Flomax] 0.4 mg PO DAILY #10 cap 01/02/21 03/21/21 Rx Levemir FlexTouch U-100 Insuln 25 unit SUBCUT HS 03/21/21 03/21/21 History rivaroxaban [Xarelto] 20 mg PO DAILY 03/21/21 03/21/21 History Laboratory Tests 03/20/21 03/20/21 03/20/21 22:40 23:24 23:24 WBC 12.7 K/mm3 H K/mm3 (4.5-10.0) RBC 3.92 M/mm3 L M/mm3 (4.6-6.20) Hgb 12.5 g/dL L g/dL (14.0-18.0) Hct 37.3 % L % (42.0-52.0) MCV 95.2 fl fl (80-100) MCH 31.9 pg pg (26-34) MCHC 33.5 g/dl g/dl (32-36) RDW 12.3 % % (11.5-14.5) Plt Count 224 k/mm3 k/mm3 (150-375) MPV 8.9 fl fl (7.4-10.4) Immature Gran % (Auto) 0.4 % % (0-0.5) Neut % (Auto) 68.8 % % (45.5-73.1) Lymph % (Auto) 21.8 % % (18.3-44.2) [place] % (Auto) 7.1 % % (2.6-8.5) Eos % (Auto) 1.3 % % (0-4.4) Baso % (Auto) 0.6 % % (0.2-1.2) Lymph # (Auto) 2.77 K/mm3 K/mm3 (0.9-3.2) [place] # (Auto) 0.9 K/mm3 H K/mm3 (0.1-0.6) Eos # (Auto) 0.2 K/mm3 K/mm3 (0-0.3) Baso # (Auto) 0.1 K/mm3 K/mm3 (0.0-0.1) Abs Immat Gran (auto) 0.05 K/mm3 H K/mm3 (0.00-0.031) Absolute Neuts (auto) 8.7 K/mm3 H K/mm3 (1.3-6.7) Absolute Nucleated RBC 0.0 K/mm3 K/mm3 (0.0-0.012) Nucleated RBC % 0.0 % % (0.0-0.2) PT INR APTT Sodium 136 mmol/L L mmol/L (137-145) Potassium 5.2 mmol/L H mmol/L (3.4-5.0) Chloride 101 mmol/L mmol/L (98-107) Carbon Dioxide 22 mmol/L mmol/L (22-30) Anion Gap 13 mmol/L mmol/L (8-16) BUN 18 mg/dL mg/dL (9-20) Creatinine 1.50 mg/dL H mg/dL (0.7-1.3) Estim Creat Clear Calc 65 ml/min ml/min Estimated GFR 47 L (59 - ) Glucose 149 mg/dL H mg/dL (65-110) POC Capillary Glucose Calcium 9.4 mg/dL mg/dL (8.4-10.2) Magnesium 1.0 mg/dL L mg/dL (1.6-2.3) Total Bilirubin 0.5 mg/dL mg/dL (0.2-1.3) AST 38 U/L U/L (17-59) ALT 27 U/L U/L (4-50) Alkaline Phosphatase 93 U/L U/L (38-126) Troponin I < 0.012 ng/mL ng/mL (0.000-0.034) Total Protein 7.0 g/dL g/dL (6.3-8.2) Albumin 4.4 g/dL g/dL (3.5-5.1) Lipase 81 U/L U/L (23-300) Urine Color [place] (Yellow) Urine Appearance Cloudy H (Clear) Urine pH 5.0 (5.0-9.0) Ur Specific [place] 1.024 (1.001-1.035) Urine Protein 2+ mg/dL H mg/dL (Negative) Urine Gluc
[2021-03-21] MEDS: SODIUM CHLORIDE 0.9% IV 500 ML 30 ML IV CONT (15:41)
[2021-03-21] MEDS: HYDROmorphone HCL INJ (*CRX) 1 MG/ML SYR 0.5 MG IV PUSH (15:42)
--- NOTE | 2021-03-21 16:08 | SUR.PREOP ---
transfer of care given to donny romano
--- NOTE | 2021-03-21 16:24 | WPDHPUPDATE1 ---
History and Physical Update Update Date/Time: 03/21/21 16:24 History and Physical has been reviewed, including an updated exam of the patient. There are NO changes in the patient's condition. Risks, benefits, and alternatives have been discussed and questions answered. Patient agrees to proceed with procedure.
[2021-03-21] MEDS: KETOROLAC 30 MG/ML VIAL (*BKC) IV PUSH (16:52)
--- NOTE | 2021-03-21 17:03 | W.PM.PROC2 ---
Procedure Note - Detailed Date of Procedure 03/21/21 Pre-op Diagnosis Left ureteral stone Post-op Diagnosis same Procedure Performed Cystoscopy, left ureteroscopy with stone extraction Surgeon Tommy Emanuel MD Anesthesia general Description of Procedure The patient was brought to the operative suite where he is prepped and draped in a routine sterile fashion while in the dorsal lithotomy position after the uneventful induction of a general LMA anesthetic. A 19F rigid cystoscope was placed in the bladder. There are no urethral strictures. His prostatic urethra measures, approximately, 2.0cm with no median lobe enlargement. The bladder mucosa was endoscopically normal without hyperemia or neoplasm. There was a single, orthotopic ureteral orifice bilaterally. A 0.035 glidewire was advanced into the left renal pelvis under fluoroscopy. The distal ureter was dilated with an 8F/10F ureteral dilator. Ureteroscopy was undertaken with a short, tapered, semi-rigid ureteroscope and the stone was extracted with ease using a 1.9F Escape disposable stone basket. Due to the ease of this manipulation I opted not to place a ureteral stent. The patient's bladder was emptied and was taken to the recovery room having tolerated this procedure well. Estimated Blood Loss 0 Urine Output 150 Drains No Packing No Pathology yes Complications No immediate complications Condition stable
[2021-03-21 17:07] LABS: Glucose Point of Care 129 mg/dl (65-105)
[2021-03-21] MEDS: MAGNESIUM SULF 4 GM/WATER100ML 4 GM/100 ML BAG IVPB (18:10)
[2021-03-21] MEDS: traZODone HCL 50 MG TABLET PO (22:20)
[2021-03-21] MEDS: ATORVASTATIN 40 MG TABLET PO (22:20)
[2021-03-21] MEDS: INSULIN DETEMIR 100 UNITS/ML 25 UNITS SUB-Q (22:24)
[2021-03-21 22:36] LABS: Glucose Point of Care 164 mg/dl (65-105)
[2021-03-22] VITALS (9 sets, daily range): BP systolic 117–132; BP diastolic 50–76; PULSE 55–79; RESP 16–20; TEMP 36.1–36.4; O2SAT 91–95
[2021-03-22 01:42] LABS: Glucose Point of Care 137 mg/dl (65-105)
[2021-03-22 02:38] LABS: Alveolar/Arterial O2 Gradient 24.7 mmHg; Base Excess ABG -4.1 mEq/l (+/-2.0); Fractional Inspired Oxygen 22 %; HCO3 ABG 19.7 mEq/l (22.0-26.0); Oxygen Content ABG 16.3 %vol (16.0-22.0); Oxygen Saturation ABG 97.3 % (95.0-100.0); Oxyhemoglobin 95.1 % THb (90.0-100.0); PO2 ABG 93.9 mmHg (80.0-100.0); PO2 FiO2 Ratio Arterial Blood 4.27 %; Total Hemoglobin 12.1 g/dL (12.0-18.0); pH ABG 7.407 (7.350-7.450)
[2021-03-22 02:39] LABS: Device NASAL CANNULA; Modified Allen's Test Pass; Site Drawn RIGHT RADIAL
--- NOTE | 2021-03-22 03:49 | PCDIET ---
Dr Cardozo notified pt had episode of shakiness, poor coordination handling urinal, and appears increasingly fatigued. Pt Dx sleep apnea but does not tolerate a CPAP and refuses. Pt had been placed on 1.5L around midnight for desat while sleeping, sats >90% since. ABG were ordered for worsening fatigue/drowsiness, ABG results were unremarkable and Accucheck was 137.
[2021-03-22] MEDS: ACETAMINOPHEN 500 MG TABLET PO (04:09)
[2021-03-22 04:55] LABS: Basophils Percent Auto 0.4 % (0.2-1.2); Eosinophils Absolute Auto 0.2 K/mm3 (0-0.3); Eosinophils Percent Auto 1.9 % (0-4.4); Hematocrit 34.3 % (42.0-52.0); Hemoglobin 11.1 g/dL (14.0-18.0); Immature Granulocyte Absolute 0.03 K/mm3 (0.00-0.031); Immature Granulocyte Percent A 0.3 % (0-0.5); Lymphocytes Absolute Auto 2.06 K/mm3 (0.9-3.2); Lymphocytes Percent Auto 19.3 % (18.3-44.2); Mean Corpuscular HGB Conc 32.4 g/dl (32-36); Mean Corpuscular Hemoglobin 30.9 pg (26-34); Mean Corpuscular Volume 95.5 fl (80-100); Mean Platelet Volume 9.2 fl (7.4-10.4); Monocytes Percent Auto 9.2 % (2.6-8.5); Neutrophils Absolute Auto 7.3 K/mm3 (1.3-6.7); Neutrophils Percent Auto 68.9 % (45.5-73.1); Platelet Count Result 203 k/mm3 (150-375); Red Blood Count 3.59 M/mm3 (4.6-6.20); Red Cell Distribution Width 12.2 % (11.5-14.5); White Blood Count 10.7 K/mm3 (4.5-10.0)
[2021-03-22 05:12] LABS: Alanine Aminotransferase 20 U/L (4-50); Albumin Level 3.4 g/dL (3.5-5.1); Alkaline Phosphatase 86 U/L (38-126); Anion Gap 5 mmol/L (8-16); Aspartate Amino Transferase 26 U/L (17-59); Bilirubin,Total 0.3 mg/dL (0.2-1.3); Blood Urea Nitrogen 19 mg/dL (9-20); Calcium 8.3 mg/dL (8.4-10.2); Carbon Dioxide 25 mmol/L (22-30); Chloride 108 mmol/L (98-107); Estimated CRCL calculation 61 ml/min; Estimated Glomerular Filt Rate 44; Glucose 136 mg/dL (65-110); Potassium 5.6 mmol/L (3.4-5.0); Sodium 138 mmol/L (137-145)
[2021-03-22] MEDS: SODIUM CHLORIDE 0.9% IV 1,000 ML 100 ML IV CONT ×2 (05:18→16:12)
--- NOTE | 2021-03-22 07:21 | WPDUROPN2 ---
Progress Note: A&P Assessment and Plan (1) Left ureteral stone: Code(s): N20.1 - Calculus of ureter Status: Acute Assessment and Plan: Doing well following stone extraction (no stent placed). Home anytime from our standpoint. F/U: 4-6 weeks. Subjective Subjective Date/Time Seen: 03/22/21 07:21 Tolerated left ureteral stone extraction well Review of Systems Cardiovascular: Cardiovascular: Denies chest pain, Denies lightheadedness, Denies palpitations and Denies dyspnea Respiratory: Respiratory: Denies dyspnea Gastrointestinal: Gastrointestinal: Denies diarrhea, Denies nausea and Denies vomiting Genitourinary: Genitourinary: Denies hematuria and Denies dysuria Endocrine: Endocrine: Denies palpitations Exam Const: General: no acute distress Resp: Effort & Inspection: normal respiratory effort GI: Inspection: non-distended GI Palp: No abdominal tenderness and No Guarding due to palpation present (GI) Auscultation: normal bowel sounds Objective Data Vital Signs Vital Signs: Vital Signs - 24 hr 03/21/21 08:00 03/21/21 08:10 03/21/21 12:00 Temperature Pulse Rate 67 63 Respiratory Rate Blood Pressure Pulse Oximetry 92 03/21/21 14:05 03/21/21 15:26 03/21/21 15:56 Temperature 97.8 F 97.7 F Pulse Rate 70 68 94 Respiratory Rate 20 18 18 Blood Pressure 136/74 138/74 111/53 L Pulse Oximetry 95 96 93 03/21/21 16:00 03/21/21 17:00 03/21/21 17:15 Temperature 97.7 F Pulse Rate 70 71 73 Respiratory Rate 16 19 18 Blood Pressure 124/72 115/68 116/52 L Pulse Oximetry 95 98 100 03/21/21 17:30 03/21/21 17:45 03/21/21 18:00 Temperature 97.6 F Pulse Rate 63 76 70 Respiratory Rate 18 16 18 Blood Pressure 107/54 L 116/63 123/89 Pulse Oximetry 100 97 93 03/21/21 18:15 03/21/21 18:44 03/21/21 19:32 Temperature 97.5 F L 97.2 F L 96.8 F L Pulse Rate 75 74 64 Respiratory Rate 18 18 17 Blood Pressure 118/68 113/62 101/40 L Pulse Oximetry 97 95 92 03/21/21 20:30 03/21/21 20:35 03/21/21 23:26 Temperature 97.2 F L Pulse Rate 70 59 L Respiratory Rate 18 Blood Pressure 115/38 L Pulse Oximetry 92 93 03/22/21 00:00 03/22/21 03:19 03/22/21 03:47 Temperature 97 F L Pulse Rate 59 L 63 Respiratory Rate 16 Blood Pressure 117/50 L Pulse Oximetry 91 93 03/22/21 04:00 Temperature Pulse Rate 68 Respiratory Rate Blood Pressure Pulse Oximetry Intake/Output Intake/Output: Intake & Output 03/19/21 03/20/21 03/21/21 03/22/21 23:59 23:59 23:59 23:59 Intake Total 3450 1716 Output Total 450 1250 Balance 3000 466 Meds/Results Medications: Active Medications Generic Name Dose Route Start Last Admin Trade Name Freq PRN Reason Stop Dose Admin Acetaminophen 500 mg 03/21/21 14:36 03/22/21 04:09 Acetaminophen 500 Mg Tablet PO 500 mg Q4H PRN Administration Mild Pain (1-3) or Fever Atorvastatin Calcium 40 mg 03/21/21 21:00 03/21/21 22:20 Atorvastatin 40 Mg Tablet PO 40 mg HS VIDYA Administration Baclofen 20 mg 03/21/21 09:00 03/21/21 18:03 Baclofen 10 Mg Tablet BY MOUTH Not Given TID VIDYA Dicyclomine HCl 20 mg 03/21/21 09:00 03/21/21 18:03 Dicyclomine Hcl 10 Mg Capsule PO Not Given TID [facility] Fentanyl Citrate 25 mcg 03/21/21 15:26 Fentanyl Citrate Inj (*Crx) 100 Mcg/2 Ml Vial IV PUSH Q2M PRN Pain Fish Oil 1 gm 03/21/21 09:00 03/21/21 22:20 [place] 3 Polyunsat Fatty Acids 1 Gm Cap PO 1 gm QID VIDYA Administration Fluoxetine HCl 40 mg 03/21/21 09:00 03/21/21 08:15 Fluoxetine Hcl 20 Mg Capsule PO 40 mg DAILY VIDYA Administration Gabapentin 400 mg 03/21/21 09:00 03/21/21 18:03 Gabapentin 400 Mg Capsule PO Not Given TID VIDYA Gabapentin 100 mg 03/21/21 09:00 03/21/21 18:04 Gabapentin 100 Mg Capsule PO Not Given TID VIDYA Ceftriaxone Sodium/Dextrose 1 gm in 50 mls @ 100 mls/hr 03/22/21 03:00 03/22/21 04:28 Rocephin 1 Gm/
--- NOTE | 2021-03-22 08:04 | ECG_ITS ---
Measurements Intervals [place] Rate: 68 P: 63 [place]: 219 QRS: 4 QRSD: 107 T: 56 QT: 385 QTc: 411 Interpretive Statements SINUS RHYTHM WITH FIRST DEGREE AV BLOCK DELAYED PRECORDIAL R/S TRANSITION LOW QRS VOLTAGE- DIFFUSE LEADS BASELINE WANDER- I, III ABNORMAL ECG Electronically Signed On 03-22-2021 8:25:57 CDT by Carlos Rose D.O.
--- NOTE | 2021-03-22 08:10 | PM.IMPN ---
Progress Note: A&P Assessment and Plan (1) Left ureteral stone: Code(s): N20.1 - Calculus of ureter Status: Acute Assessment and Plan: 1. Left ureteral hydronephrosis due to Obstructing ureteral stone; obstructive uropathy: -patient is being followed by Urology - patient underwent stone extraction on 03/21/2021. Procedure was tolerated. -will hold Eliquis for today and can resume from tomorrow (2) Hydronephrosis: Qualifiers: Hydronephrosis type: with ureteral calculous obstruction Qualified Code(s): N13.2 - Hydronephrosis with renal and ureteral calculous obstruction Code(s): N13.30 - Unspecified hydronephrosis Status: Acute (3) Hematuria: Qualifiers: Hematuria type: gross Qualified Code(s): R31.0 - Gross hematuria Code(s): R31.9 - Hematuria, unspecified Status: Acute (4) Calculus, ureteral: Code(s): N20.1 - Calculus of ureter Status: Acute (5) Hypomagnesemia: Code(s): E83.42 - Hypomagnesemia Status: Acute (6) Hyperkalemia: Code(s): E87.5 - Hyperkalemia Status: Acute (7) YASMEEN (acute kidney injury): Code(s): N17.9 - Acute kidney failure, unspecified Status: Acute Assessment and Plan: Kidney function is improving with creatinine from 1.7 to 1.6. Baseline creatinine 0.8 - 0.9. Likely secondary to obstructive uropathy. Continue to monitor as an outpatient. Avoid nephrotoxic medications. (8) Leukocytosis: Qualifiers: Leukocytosis type: unspecified Qualified Code(s): D72.829 - Elevated white blood cell count, unspecified Code(s): D72.829 - Elevated white blood cell count, unspecified Status: Acute (9) Chronic anemia: Code(s): D64.9 - Anemia, unspecified Status: Acute (10) Hyperlipidemia: Qualifiers: Hyperlipidemia type: unspecified Qualified Code(s): E78.5 - Hyperlipidemia, unspecified Code(s): E78.5 - Hyperlipidemia, unspecified Status: Chronic (11) HTN (hypertension): Qualifiers: Hypertension type: essential hypertension Qualified Code(s): I10 - Essential (primary) hypertension Code(s): I10 - Essential (primary) hypertension Status: Chronic (12) Depression: Qualifiers: Depression Type: unspecified Qualified Code(s): F32.9 - Major depressive disorder, single episode, unspecified Code(s): F32.9 - Major depressive disorder, single episode, unspecified Status: Chronic (13) Chronic 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 YASMEEN secondary to obstructive uropathy: -strict I's and O's -creatinine up trending -continue IV fluids -will recheck creatinine in a.m. -avoid nephrotoxic medication 3. Hyperkalemia and hypomagnesemia: -hyperkalemia resolved. -hypomagnesemia being repleted Subjective Date/time seen: 03/22/21 08:10 S: Patient is examined at the bedside. He reports lower back pain. He has past history of back and hip surgeries. Interval history: 65-year-old male medical history significant hypertension hyperlipidemia history DVT x3, CAD CVA history, type 2 diabetes, obstructive sleep apnea on CPAP, COPD and prior history of renal stones presented with left sided lumbar pain with hematuria. Patient is being managed as a case of obstructive uropathy with left-sided hydroureteronephrosis due to 5 mm stone. Urology was contacted from the ER and patient is scheduled to get cystoscopy today. UA is noted to be noninfectious however while noted to have hematuria. He was empirically started on Rocephin due to planned
[2021-03-22] MEDS: FLUoxetine HCL 20 MG CAPSULE 40 MG PO (08:12)
[2021-03-22] MEDS: GABAPENTIN 400 MG CAPSULE PO ×3 (08:12→16:08)
[2021-03-22] MEDS: BACLOFEN 10 MG TABLET 20 MG BY MOUTH ×3 (08:12→16:08)
[2021-03-22] MEDS: GABAPENTIN 100 MG CAPSULE PO ×3 (08:13→16:08)
[2021-03-22] MEDS: OMEGA 3 POLYUNSAT FATTY ACIDS 1 GM CAP PO ×3 (08:13→16:08)
[2021-03-22 08:26] LABS: Glucose Point of Care 141 mg/dl (65-105)
[2021-03-22] MEDS: SODIUM POLYSTYRENE SULFONONATE 15 GM/60 ML BTL PO (10:11)
[2021-03-22] MEDS: DICYCLOMINE HCL 10 MG CAPSULE 20 MG PO ×3 (10:11→16:08)
[2021-03-22] MEDS: oxyCODONE HCL (*CRX) 5 MG TAB IR PO (10:12)
[2021-03-22] MEDS: oxyCODONE/ACETAMINOPHEN (*CRX) 5-325 MG TABLET 1 TABLET PO (10:13)
[2021-03-22] MEDS: RIVAROXABAN 20 MG TABLET PO (11:16)
[2021-03-22 11:54] LABS: Glucose Point of Care 144 mg/dl (65-105)
[2021-03-22] MEDS: LIDOCAINE 5% PATCH 1 PATCH TRANSDERM (16:08)
[2021-03-22 16:38] LABS: Glucose Point of Care 123 mg/dl (65-105)
--- NOTE | 2021-03-22 16:58 | PM.DS ---
DS: Admitting Diagnosis Discharge Date 03/22/2021. Admitting Diagnosis Calculus of ureter. DS: Discharge Diagnosis Discharge Diagnosis (1) Left ureteral stone: Code(s): N20.1 - Calculus of ureter Status: Acute Assessment and Plan: 1. Left ureteral hydronephrosis due to Obstructing ureteral stone; obstructive uropathy: -patient is being followed by Urology - patient underwent stone extraction on 03/21/2021. Procedure was tolerated. -will hold Eliquis for today and can resume from tomorrow (2) Hydronephrosis: Qualifiers: Hydronephrosis type: with ureteral calculous obstruction Qualified Code(s): N13.2 - Hydronephrosis with renal and ureteral calculous obstruction Code(s): N13.30 - Unspecified hydronephrosis Status: Acute (3) Hematuria: Qualifiers: Hematuria type: gross Qualified Code(s): R31.0 - Gross hematuria Code(s): R31.9 - Hematuria, unspecified Status: Acute (4) Calculus, ureteral: Code(s): N20.1 - Calculus of ureter Status: Acute (5) Hypomagnesemia: Code(s): E83.42 - Hypomagnesemia Status: Acute (6) Hyperkalemia: Code(s): E87.5 - Hyperkalemia Status: Acute (7) YASMEEN (acute kidney injury): Code(s): N17.9 - Acute kidney failure, unspecified Status: Acute Assessment and Plan: Kidney function is improving with creatinine from 1.7 to 1.6. Baseline creatinine 0.8 - 0.9. Likely secondary to obstructive uropathy. Continue to monitor as an outpatient. Avoid nephrotoxic medications. (8) Leukocytosis: Qualifiers: Leukocytosis type: unspecified Qualified Code(s): D72.829 - Elevated white blood cell count, unspecified Code(s): D72.829 - Elevated white blood cell count, unspecified Status: Acute (9) Chronic anemia: Code(s): D64.9 - Anemia, unspecified Status: Acute (10) Hyperlipidemia: Qualifiers: Hyperlipidemia type: unspecified Qualified Code(s): E78.5 - Hyperlipidemia, unspecified Code(s): E78.5 - Hyperlipidemia, unspecified Status: Chronic (11) HTN (hypertension): Qualifiers: Hypertension type: essential hypertension Qualified Code(s): I10 - Essential (primary) hypertension Code(s): I10 - Essential (primary) hypertension Status: Chronic (12) Depression: Qualifiers: Depression Type: unspecified Qualified Code(s): F32.9 - Major depressive disorder, single episode, unspecified Code(s): F32.9 - Major depressive disorder, single episode, unspecified Status: Chronic (13) Chronic anticoagulation: Code(s): Z79.01 - [facility] (current) use of anticoagulants Status: Chronic (14) History of DVT (deep vein thrombosis): Code(s): Z86.718 - Personal history of other venous thrombosis and embolism Status: Acute (15) MIKEY (obstructive sleep apnea): Code(s): G47.33 - Obstructive sleep apnea (adult) (pediatric) Status: Acute DS: Summary Hospital Course Reason for hospitalization: Lower back pain. Hospital Course: Please refer to admission H& P. Briefly, this is a 65-year-old male with history of chronic back pain as well as kidney stones presents to the ED today with complaint of left-sided back pain as well as right-sided back pain. He reports that his right-sided back pain has been ongoing for past few days however the left-sided back pain has been ongoing on and off for several months now. He recently had some x-rays done the result of which is unknown to him. He also reports he had some blood coming out of his urine few days back and has been having some burning urination and difficulty urinating associated with left-sided lower back pain which radiates to the front to the groin area. Was evaluated with a CT scan of the abdomen and pelvis in the ED which showed left distal ureteral stone with mild hydronephrosis he has hands getting admi
== END 2021-03-22 18:30 | disposition home or self-care (01) ==
LOC: ANHED 03-21 03:51 → ANH2MED 03-21 04:34
PROVIDERS: Internal Medicine; Urology; Admitting Provider Internal Medicine; Emergency Provider Emergency Medicine; PCP Family Medicine; Visit Provider Internal Medicine
PROC: (CPT 52352; principal; 2021-03-21 15:15)
DX: N13.2 Hydronephrosis with renal and ureteral calculous obstruction (principal); R31.9 Hematuria, unspecified; D72.829 Elevated white blood cell count, unspecified; E11.65 Type 2 diabetes mellitus with hyperglycemia; E83.42 Hypomagnesemia; E78.5 Hyperlipidemia, unspecified; F17.210 Nicotine dependence, cigarettes, uncomplicated; G89.29 Other chronic pain; G47.33 Obstructive sleep apnea (adult) (pediatric); I10 Essential (primary) hypertension; I25.10 Atherosclerotic heart disease of native coronary artery without angina pectoris; J44.9 Chronic obstructive pulmonary disease, unspecified; M54.9 Dorsalgia, unspecified; R06.02 Shortness of breath; Z79.01 Long term (current) use of anticoagulants; Z86.73 Personal history of transient ischemic attack (TIA), and cerebral infarction without residual deficits; Z86.718 Personal history of other venous thrombosis and embolism; Z79.4 Long term (current) use of insulin
CPT/HCPCS: 52352; 36415; 36600; 71045; 74176; 80053; 81001; 82365; 82805; 82948; 83690; 83735; 84132; 84484; 85025; 85610; 85730; 88300; 93005; 94640; 96361; 96365; 96366; 96367; 96375; 96376; 99285; A9270; C1769; G0378; J0696; J1170; J1815; J1885; J2250; J2405; J2704; J3010; J3475; J7030; J7040; Q9966